=== PATIENT | male | born 1940 | race Caucasian/White ===

== ENCOUNTER 2019-01-01 23:45 | Emergency (ER) | payer MEDICARE, OTHER ==
[~2019-01-01] VITALS: Ht 165.1 cm; Wt 66.8 kg
--- NOTE | 2019-01-02 01:09 | NUR ---
DISCUSSED PT'S SLIGHT INCREASE OF PAIN WITH EDMD GARCIA; NEW ORDER FOR MORPHINE X2 RECEIVED.
[2019-01-02] MEDS ORDERED: morphine 4 MG/ML inj SYRINge IV ONE (01:10)
[2019-01-02] MEDS ORDERED: normal saline 1000ml 1,000 ML IV ONE (01:15)
[2019-01-02] MEDS ORDERED: ketorolac tromethamine 15mg/ml inj. IV ONE (01:15)
[2019-01-02] MEDS ORDERED: normal saline 1000ML IV soln IVB ONE (01:15)
--- NOTE | 2019-01-02 01:19 | NUR ---
TO XRAY W/ STOP BY BATHROOM FOR UA.
[2019-01-02 01:42] LABS: ALANINE AMINOTRANSFERASE 23 U/L (12-78); ALBUMIN 3.1 G/DL (3.4-5.0); ALBUMIN/GLOBULIN RATIO 0.9 (1.1-1.5); ALKALINE PHOSPHATASE 48 IU/L (46-116); ANION GAP 9 (8-16); ASPARTATE AMINO TRANSFERASE 15 U/L (10-37); BILIRUBIN,TOTAL 0.3 MG/DL (0.1-1.0); BLOOD UREA NITROGEN 30 MG/DL (7-18); BUN/CREATININE RATIO 21.9 (5.4-32.0); CALCIUM 8.6 MG/DL (8.5-10.1); CHLORIDE 108 MMOL/L (99-107); CREATININE 1.37 MG/DL (0.60-1.10); GLUCOSE 123 MG/DL (70-104); LIPASE 115 U/L (73-393); POTASSIUM 4.2 MMOL/L (3.5-5.1); SODIUM 141 MMOL/L (135-145); TOTAL CARBON DIOXIDE 23.7 MMOL/L (24-32); TOTAL PROTEIN 6.5 G/DL (6.4-8.2); eGFR 50 ML/MIN
[2019-01-02 01:43] LABS: BASOPHILS % (AUTO) 0.3 % (0-1); EOSINOPHILS # (AUTO) 0.2 X10'3 (0-0.9); EOSINOPHILS % (AUTO) 1.9 % (0-6); HEMATOCRIT 28.1 % (42.0-52.0); HEMOGLOBIN 9.7 g/dl (14.0-17.9); LYMPHOCYTES # (AUTO) 0.8 X10'3 (1.1-4.8); LYMPHOCYTES % (AUTO) 9.4 % (21-51); MEAN CORPUSCULAR HGB CONC 34.6 g/dL (33.0-36.5); MEAN CORPUSCULAR VOLUME 95.5 FL (78-98); MEAN PLATELET VOLUME 7.4 FL (7.4-10.4); MONOCYTES # (AUTO) 0.3 X10'3 (0-0.9); MONOCYTES % (AUTO) 2.9 % (2-12); NEUTROPHILS # (AUTO) 7.7 X10'3 (1.8-7.7); NEUTROPHILS % (AUTO) 85.5 % (42-75); PLATELET COUNT 255 X10'3 (140-440); RED BLOOD COUNT 2.94 X10'6 (4.70-6.10); RED CELL DISTRIBUTION WIDTH 14.3 % (11.5-14.5)
[2019-01-02 01:47] LABS: CLARITY,URINE CLEAR (Clear); COLOR,URINE YELLOW (Yellow); GLUCOSE, URINE NEGATIVE (Neg); KETONES,URINE TRACE mg/dl (Neg); LEUKOCYTE ESTERASE ,URINE NEGATIVE (Neg); NITRITES, URINE NEGATIVE (Neg); OCCULT BLOOD,URINE TRACE-INTACT (Neg); PH,URINE 5.5 (4.8-8.0); PROTEIN,URINE NEGATIVE (Neg); UROBILINOGEN,URINE 0.2 E.U/dL (0.2-1.0)
[2019-01-02 01:50] LABS: UA COLLECTION TYPE VOIDED
[2019-01-02 01:55] LABS: BACTERIA,URINE FEW /HPF (Neg); MUCUS STRANDS FEW /LPF (Neg); RBC,URINE 0-2 /HPF (0-2); SQUAMOUS EPITHELIAL CELL,UR FEW /LPF (FEW); WBC,URINE 0-4 /HPF (0-4)
[2019-01-02] MEDS ORDERED: iohexol 300mg/ml 100ml inj. ONE (02:19)
[2019-01-02] MEDS ORDERED: piperacillin/tazo 3.375gm/50ml 50 ML IV ONE (04:10)
[2019-01-02 04:51] VITALS: BP 110/52
[2019-01-02] MEDS ORDERED: ciprofloxacin 250mg tablet PO ONE (04:55)
[2019-01-02] MEDS ORDERED: metroNIDAZOLE 500mg tablet PO ONE (04:55)
[2019-01-02] MEDS ORDERED: METR250T PO (04:57)
[2019-01-02] MEDS ORDERED: CIPR250T4 PO (04:57)
== END 2019-01-02 05:34 | disposition home or self-care (01) ==
LOC: ER 23:45
DX: K57.32 Diverticulitis of large intestine without perforation or abscess without bleeding (principal); R11.10 Vomiting, unspecified; I10 Essential (primary) hypertension; Z87.442 Personal history of urinary calculi; Z79.2 Long term (current) use of antibiotics
CPT/HCPCS: 36415; 74018; 74177; 80053; 81001; 83605; 83690; 85025; 87040; 93005; 96361; 96365; 96375; 99284; J1885; J2543; J7030; Q9967; J3490

== ENCOUNTER 2020-10-09 19:38 | Emergency (ER) | payer MEDICARE, OTHER ==
[~2020-10-09] VITALS: Ht 165.1 cm; Wt 65.9 kg
[2020-10-09] MEDS ORDERED: HYDROcodone/acetaminophen 10/325mg tab PO ONE (23:00)
[2020-10-09 23:42] LABS: BASOPHILS % (AUTO) 0.4 % (0-1); EOSINOPHILS # (AUTO) 0.1 X10'3 (0-0.9); EOSINOPHILS % (AUTO) 1.1 % (0-6); HEMATOCRIT 27.2 % (42.0-52.0); HEMOGLOBIN 9.1 g/dl (14.0-17.9); LYMPHOCYTES # (AUTO) 2.2 X10'3 (1.1-4.8); LYMPHOCYTES % (AUTO) 19.8 % (21-51); MEAN CORPUSCULAR HEMOGLOBIN 30.3 PG (27.0-31.0); MEAN CORPUSCULAR HGB CONC 33.4 g/dL (33.0-36.5); MEAN CORPUSCULAR VOLUME 90.6 FL (78-98); MEAN PLATELET VOLUME 6.7 FL (7.4-10.4); MONOCYTES # (AUTO) 0.6 X10'3 (0-0.9); NEUTROPHILS # (AUTO) 8.2 X10'3 (1.8-7.7); NEUTROPHILS % (AUTO) 73.7 % (42-75); PLATELET COUNT 385 X10'3 (140-440); RED CELL DISTRIBUTION WIDTH 15.1 % (11.5-14.5); WHITE BLOOD COUNT 11.1 X10'3 (4.5-11.0)
[2020-10-09 23:50] LABS: ALANINE AMINOTRANSFERASE 15 U/L (12-78); ALBUMIN 2.7 G/DL (3.4-5.0); ALBUMIN/GLOBULIN RATIO 0.6 (1.1-1.5); ALKALINE PHOSPHATASE 71 IU/L (46-116); ANION GAP 13 (8-16); ASPARTATE AMINO TRANSFERASE 20 U/L (10-37); BILIRUBIN,TOTAL 0.4 MG/DL (0.1-1.0); BLOOD UREA NITROGEN 25 MG/DL (7-18); BUN/CREATININE RATIO 22.5 (5.4-32.0); CALCIUM 9.8 MG/DL (8.5-10.1); CHLORIDE 104 MMOL/L (99-107); CREATININE 1.11 MG/DL (0.60-1.10); GLUCOSE 117 MG/DL (70-104); POTASSIUM 3.9 MMOL/L (3.5-5.1); SODIUM 140 MMOL/L (135-145); TOTAL CARBON DIOXIDE 23.1 MMOL/L (24-32); TOTAL PROTEIN 7.6 G/DL (6.4-8.2); eGFR 64 ML/MIN
[2020-10-10] MEDS ORDERED: ketorolac tromethamine 15mg/ml inj. IM ONE
[2020-10-10 00:50] VITALS: BP 169/68
== END 2020-10-10 00:52 | disposition home or self-care (01) ==
LOC: ER 19:39
DX: M10.39 Gout due to renal impairment, multiple sites (principal); R10.9 Unspecified abdominal pain; I10 Essential (primary) hypertension; Z87.442 Personal history of urinary calculi
CPT/HCPCS: 36415; 80053; 84550; 85025; 85651; 96372; 99283; J1885

== ENCOUNTER 2021-08-04 19:20 | Inpatient (IN) | payer MEDICARE, OTHER ==
[~2021-08-04] VITALS: Ht 165.1 cm; Wt 70.0 kg
[~2021-08-04 19:20] MED LIST: ALLO300T2 PO; ASPI-1071 PO; ATOR20TA66 PO; CHOL500050 PO; CLOP75TA34 PO; FURO-150 PO; GABA-530 PO; METO-395 PO; MULT-1085 PO; OMEG-79 PO; PRED5TAB49 PO; SACU1TAB PO
--- NOTE | 2021-08-04 19:34 | NUR ---
xray at bedside
--- NOTE | 2021-08-04 19:40 | NUR ---
patient placed on a cardiac montior , bed in the lowest position
[2021-08-04 19:51] LABS: BASOPHILS % (AUTO) 0.1 % (0-1); EOSINOPHILS % (AUTO) 0 % (0-6); HEMOGLOBIN 10.2 g/dl (14.0-17.9); LYMPHOCYTES # (AUTO) 0.6 X10'3 (1.1-4.8); LYMPHOCYTES % (AUTO) 4.7 % (21-51); MEAN CORPUSCULAR HEMOGLOBIN 32.9 PG (27.0-31.0); MEAN CORPUSCULAR VOLUME 96.7 FL (78-98); MEAN PLATELET VOLUME 7.8 FL (7.4-10.4); MONOCYTES # (AUTO) 0.2 X10'3 (0-0.9); NEUTROPHILS # (AUTO) 11.4 X10'3 (1.8-7.7); NEUTROPHILS % (AUTO) 93.2 % (42-75); PLATELET COUNT 349 X10'3 (140-440); RED CELL DISTRIBUTION WIDTH 16.1 % (11.5-14.5); WHITE BLOOD COUNT 12.2 X10'3 (4.5-11.0)
[2021-08-04 20:07] LABS: ALANINE AMINOTRANSFERASE 32 U/L (12-78); ALBUMIN 3.4 G/DL (3.4-5.0); ALBUMIN/GLOBULIN RATIO 0.8 (1.1-1.5); ALKALINE PHOSPHATASE 50 IU/L (46-116); ANION GAP 14 (8-16); ASPARTATE AMINO TRANSFERASE 54 U/L (10-37); BILIRUBIN,TOTAL 0.6 MG/DL (0.1-1.0); BLOOD UREA NITROGEN 82 MG/DL (7-18); CALCIUM 9.9 MG/DL (8.5-10.1); CHLORIDE 100 MMOL/L (99-107); CREATININE 2.16 MG/DL (0.60-1.10); GLUCOSE 135 MG/DL (70-104); POTASSIUM 4.3 MMOL/L (3.5-5.1); SODIUM 138 MMOL/L (135-145); TOTAL CARBON DIOXIDE 24.1 MMOL/L (24-32); TOTAL PROTEIN 7.8 G/DL (6.4-8.2); eGFR 30 ML/MIN
--- NOTE | 2021-08-04 20:15 | NUR ---
PATIENT TO CT
--- NOTE | 2021-08-04 20:30 | NUR ---
patient back in the room placed on the sustainable agriculture specialist
[2021-08-04] MEDS ORDERED: magnesium 2GM in 50ml NS 50 ML IV PRN (21:35)
[2021-08-04] MEDS ORDERED: mag hydrox/Alum hydrox/simeth 30ml oral suspension PO PRN (21:35)
[2021-08-04] MEDS ORDERED: magnesium hydroxide 30ml (MOM) UD suspension PO PRN (21:35)
[2021-08-04] MEDS ORDERED: magnesium Cl slow-release 64mg tablet PO PRN (21:35)
[2021-08-04] MEDS ORDERED: magnesium 4gm in 100ml NS 100 ML IV PRN (21:35)
[2021-08-04] MEDS ORDERED: acetaminophen 325mg tablet PO PRN (21:35)
[2021-08-04] MEDS ORDERED: potassium CL 10mEq/100ml bag 100 ML IV PRN (21:35)
[2021-08-04] MEDS ORDERED: ondansetron/PF 4mg/2ml inj IV PRN (21:35)
[2021-08-04] MEDS ORDERED: potassium Cl 20 mEq SR tablet PO PRN ×2 (21:35)
[2021-08-04] MEDS ORDERED: FURO20TA4 PO (22:08)
[2021-08-04] MEDS ORDERED: SACU1TAB PO (22:08)
[2021-08-04] MEDS ORDERED: CLOP75TA33 PO (22:08)
[2021-08-04] MEDS ORDERED: METO-395 PO (22:08)
--- NOTE | 2021-08-04 22:10 | NUR ---
[facility] [phone] WILDER NOTIFIED, NO NEW ORDERS.
[2021-08-04] MEDS ORDERED: ASPI-611 PO (22:13)
[2021-08-04 22:28] LABS: MAGNESIUM 2.3 MG/DL (1.5-2.4)
[2021-08-05] VITALS: BP 143/72
--- NOTE | 2021-08-05 | NUR ---
Patient transfer from ER to PCU in a stable condition. vital signs stable oriented to room bed in lower position call light within reach no signs of seizure at this time will continue to monitor and report changes
[2021-08-05 06:00] VITALS: BP 147/80
--- NOTE | 2021-08-05 06:16 | NUR ---
Problems reprioritized. Patient report given, questions answered & plan of care reviewed with Loida RN .
[2021-08-05 07:12] LABS: BASOPHILS % (AUTO) 0.1 % (0-1); EOSINOPHILS % (AUTO) 0 % (0-6); HEMATOCRIT 30.5 % (42.0-52.0); HEMOGLOBIN 10.2 g/dl (14.0-17.9); LYMPHOCYTES # (AUTO) 1.1 X10'3 (1.1-4.8); LYMPHOCYTES % (AUTO) 9.1 % (21-51); MEAN CORPUSCULAR HEMOGLOBIN 32.8 PG (27.0-31.0); MEAN CORPUSCULAR HGB CONC 33.5 g/dL (33.0-36.5); MEAN CORPUSCULAR VOLUME 97.8 FL (78-98); MEAN PLATELET VOLUME 8.1 FL (7.4-10.4); MONOCYTES # (AUTO) 0.5 X10'3 (0-0.9); MONOCYTES % (AUTO) 4.2 % (2-12); NEUTROPHILS # (AUTO) 10.4 X10'3 (1.8-7.7); NEUTROPHILS % (AUTO) 86.6 % (42-75); PLATELET COUNT 350 X10'3 (140-440); RED BLOOD COUNT 3.12 X10'6 (4.70-6.10); RED CELL DISTRIBUTION WIDTH 16.4 % (11.5-14.5)
[2021-08-05 07:16] LABS: ALANINE AMINOTRANSFERASE 32 U/L (12-78); ALBUMIN 3.2 G/DL (3.4-5.0); ALBUMIN/GLOBULIN RATIO 0.7 (1.1-1.5); ALKALINE PHOSPHATASE 48 IU/L (46-116); ANION GAP 15 (8-16); ASPARTATE AMINO TRANSFERASE 44 U/L (10-37); BILIRUBIN,TOTAL 0.5 MG/DL (0.1-1.0); BLOOD UREA NITROGEN 75 MG/DL (7-18); BUN/CREATININE RATIO 37.7 (5.4-32.0); CALCIUM 9.8 MG/DL (8.5-10.1); CHLORIDE 103 MMOL/L (99-107); CREATININE 1.99 MG/DL (0.60-1.10); GLUCOSE 146 MG/DL (70-104); MAGNESIUM 2.4 MG/DL (1.5-2.4); POTASSIUM 4.3 MMOL/L (3.5-5.1); SODIUM 140 MMOL/L (135-145); TOTAL CARBON DIOXIDE 21.6 MMOL/L (24-32); TOTAL PROTEIN 7.9 G/DL (6.4-8.2); eGFR 32 ML/MIN
[2021-08-05] MEDS: gabapentin 100mg capsule PO SCH ×2 (07:50→20:58)
[2021-08-05] MEDS: sacubitril/valsartan 24mg-26mg tablet PO SCH ×2 (07:51→20:58)
[2021-08-05] MEDS: multivitamins, therapeutics tablet PO SCH ×2 (07:52→20:58)
[2021-08-05] MEDS: aspirin 81mg, enteric-coated 1 TAB TABLET.DR PO SCH (07:52)
[2021-08-05] MEDS: clopidogrel 75mg tablet PO SCH (07:53)
[2021-08-05] MEDS: allopurinol 300 MG tablet PO SCH (07:53)
[2021-08-05] MEDS: cholecalciferol (vitamin D3) 1,000 unit (25mcg) tablet PO SCH (07:54)
[2021-08-05] MEDS: docusate sod 100mg capsule PO SCH ×2 (07:54→20:00)
[2021-08-05] MEDS: predniSONE 5mg tablet PO SCH (07:55)
[2021-08-05] MEDS: OMEGA-3/DHA/EPA/FISH OIL 1 EACH CAPSULE.DR PO SCH ×2 (07:56→20:58)
[2021-08-05] MEDS: K and/or MAG REPLACEMENT MC SCH ×2 (07:58→20:00)
[2021-08-05] MEDS ORDERED: metoprolol succinate 25mg (24-HOUR) SR. Tablet PO SCH (08:00)
[2021-08-05] MEDS ORDERED: furosemide 20MG tablet PO SCH (08:00)
[2021-08-05 11:00] VITALS: BP 111/66
[2021-08-05 15:56] VITALS: BP 106/40
[2021-08-05 18:50] VITALS: BP 101/53
[2021-08-05 22:00] VITALS: BP 91/56
[2021-08-06 02:00] VITALS: BP 89/47
[2021-08-06 05:47] LABS: BASOPHILS % (AUTO) 0.1 % (0-1); EOSINOPHILS # (AUTO) 0.1 X10'3 (0-0.9); EOSINOPHILS % (AUTO) 0.6 % (0-6); HEMATOCRIT 30.1 % (42.0-52.0); LYMPHOCYTES # (AUTO) 1.5 X10'3 (1.1-4.8); LYMPHOCYTES % (AUTO) 15.5 % (21-51); MEAN CORPUSCULAR HEMOGLOBIN 32.5 PG (27.0-31.0); MEAN CORPUSCULAR HGB CONC 33.3 g/dL (33.0-36.5); MEAN CORPUSCULAR VOLUME 97.7 FL (78-98); MEAN PLATELET VOLUME 8.1 FL (7.4-10.4); MONOCYTES # (AUTO) 0.5 X10'3 (0-0.9); MONOCYTES % (AUTO) 5.1 % (2-12); NEUTROPHILS # (AUTO) 7.7 X10'3 (1.8-7.7); NEUTROPHILS % (AUTO) 78.7 % (42-75); PLATELET COUNT 301 X10'3 (140-440); RED BLOOD COUNT 3.08 X10'6 (4.70-6.10); RED CELL DISTRIBUTION WIDTH 16.4 % (11.5-14.5); WHITE BLOOD COUNT 9.8 X10'3 (4.5-11.0)
[2021-08-06 06:00] VITALS: BP 95/53
[2021-08-06 06:25] LABS: ALANINE AMINOTRANSFERASE 26 U/L (12-78); ALBUMIN 2.5 G/DL (3.4-5.0); ALBUMIN/GLOBULIN RATIO 0.7 (1.1-1.5); ALKALINE PHOSPHATASE 40 IU/L (46-116); ANION GAP 9 (8-16); ASPARTATE AMINO TRANSFERASE 34 U/L (10-37); BILIRUBIN,TOTAL 0.6 MG/DL (0.1-1.0); BLOOD UREA NITROGEN 80 MG/DL (7-18); BUN/CREATININE RATIO 47.1 (5.4-32.0); CALCIUM 8.5 MG/DL (8.5-10.1); CHLORIDE 103 MMOL/L (99-107); GLUCOSE 90 MG/DL (70-104); MAGNESIUM 2.5 MG/DL (1.5-2.4); POTASSIUM 3.9 MMOL/L (3.5-5.1); SODIUM 137 MMOL/L (135-145); TOTAL CARBON DIOXIDE 24.9 MMOL/L (24-32); TOTAL PROTEIN 5.9 G/DL (6.4-8.2); eGFR 39 ML/MIN
[2021-08-06] MEDS: sacubitril/valsartan 24mg-26mg tablet PO SCH ×2 (08:00→20:00)
[2021-08-06] MEDS: K and/or MAG REPLACEMENT MC SCH ×2 (08:00→19:45)
[2021-08-06 08:09] VITALS: BP 94/55
[2021-08-06] MEDS: aspirin 81mg, enteric-coated 1 TAB TABLET.DR PO SCH (08:15)
[2021-08-06] MEDS: cholecalciferol (vitamin D3) 1,000 unit (25mcg) tablet PO SCH (08:16)
[2021-08-06] MEDS: docusate sod 100mg capsule PO SCH ×2 (08:16→23:11)
[2021-08-06] MEDS: gabapentin 100mg capsule PO SCH ×2 (08:18→23:11)
[2021-08-06] MEDS: OMEGA-3/DHA/EPA/FISH OIL 1 EACH CAPSULE.DR PO SCH ×2 (08:19→23:11)
[2021-08-06] MEDS: allopurinol 300 MG tablet PO SCH (08:19)
[2021-08-06] MEDS: multivitamins, therapeutics tablet PO SCH ×2 (08:21→23:17)
[2021-08-06] MEDS: predniSONE 5mg tablet PO SCH (08:21)
[2021-08-06] MEDS: clopidogrel 75mg tablet PO SCH (08:21)
--- NOTE | 2021-08-06 08:30 | NUR ---
Medication administration supervised by Clinical Guidance And Control System Engineer.
--- NOTE | 2021-08-06 10:50 | NUR ---
BM was not observed by me, this was reported by the patient.
--- NOTE | 2021-08-06 10:52 | NUR ---
Charting by Nanda TAVERAS reviewed by Katerin Topete RN
[2021-08-06 11:00] VITALS: BP 103/62
--- NOTE | 2021-08-06 12:46 | NUR ---
Pt had a 6.58 sec pause on the heart monitor, Pt states he had a feeling of dizziness, Pt was lying in bed. Denies any CP Vitals BP:103/58, HRR: 78,Resp 14. notified via Text/page. Addendum: 08/06/21 at 1304 by Loida Webster RN pt showing 2nd degree heart block periodically HR 47-60
--- NOTE | 2021-08-06 14:36 | NUR ---
Pt having AV dissociation, Heart Rate 30's, Pt not symptomatic. HOB elevated 45degree, pt was was taking bed bath with spouse. Denies any CP or discomforts.Denies any dizziness Dr. Hallman on unit and notified.Defibrillator/Pacer at bedside.
[2021-08-06 15:00] VITALS: BP 99/51
--- NOTE | 2021-08-06 15:23 | NUR ---
Pt states he ambulates to bathroom and voids normally
--- NOTE | 2021-08-06 15:26 | NUR ---
Charting Shiela TAVERAS reviewed by Katerin Topete RN
--- NOTE | 2021-08-06 15:52 | NUR ---
Charting by hRoda TAVERAS reviewed by Katerin Topete RN
--- NOTE | 2021-08-06 17:30 | NUR ---
Pt HR in the 30's sustaining, Patient feeling short of breath, Requested orders for Atropine? Informed MD patient on the Zoll monitor at this time.Awaiting addtl orders from
[2021-08-06] MEDS ORDERED: atropine 0.1mg/ml 10ml syringe IV ONE (17:40)
[2021-08-07] VITALS (7 sets, daily range): BP systolic 93–109; BP diastolic 34–56
[2021-08-07 07:07] LABS: BASOPHILS % (AUTO) 0.1 % (0-1); EOSINOPHILS # (AUTO) 0.2 X10'3 (0-0.9); EOSINOPHILS % (AUTO) 1.5 % (0-6); HEMATOCRIT 31.5 % (42.0-52.0); HEMOGLOBIN 10.2 g/dl (14.0-17.9); LYMPHOCYTES # (AUTO) 2.3 X10'3 (1.1-4.8); LYMPHOCYTES % (AUTO) 18.9 % (21-51); MEAN CORPUSCULAR HEMOGLOBIN 31.8 PG (27.0-31.0); MEAN CORPUSCULAR HGB CONC 32.4 g/dL (33.0-36.5); MEAN CORPUSCULAR VOLUME 98.1 FL (78-98); MEAN PLATELET VOLUME 8.5 FL (7.4-10.4); MONOCYTES # (AUTO) 0.7 X10'3 (0-0.9); MONOCYTES % (AUTO) 5.6 % (2-12); NEUTROPHILS # (AUTO) 8.9 X10'3 (1.8-7.7); NEUTROPHILS % (AUTO) 73.9 % (42-75); PLATELET COUNT 317 X10'3 (140-440); RED BLOOD COUNT 3.21 X10'6 (4.70-6.10); RED CELL DISTRIBUTION WIDTH 16.3 % (11.5-14.5); WHITE BLOOD COUNT 12.1 X10'3 (4.5-11.0)
[2021-08-07 07:30] LABS: ALANINE AMINOTRANSFERASE 23 U/L (12-78); ALBUMIN 2.4 G/DL (3.4-5.0); ALBUMIN/GLOBULIN RATIO 0.7 (1.1-1.5); ALKALINE PHOSPHATASE 41 IU/L (46-116); ANION GAP 5 (8-16); ASPARTATE AMINO TRANSFERASE 26 U/L (10-37); BILIRUBIN,TOTAL 0.6 MG/DL (0.1-1.0); BLOOD UREA NITROGEN 87 MG/DL (7-18); BUN/CREATININE RATIO 40.7 (5.4-32.0); CALCIUM 8.4 MG/DL (8.5-10.1); CHLORIDE 101 MMOL/L (99-107); CREATININE 2.14 MG/DL (0.60-1.10); GLUCOSE 105 MG/DL (70-104); MAGNESIUM 2.6 MG/DL (1.5-2.4); POTASSIUM 4.4 MMOL/L (3.5-5.1); SODIUM 130 MMOL/L (135-145); TOTAL CARBON DIOXIDE 23.8 MMOL/L (24-32); TOTAL PROTEIN 5.9 G/DL (6.4-8.2); eGFR 30 ML/MIN
[2021-08-07] MEDS: sacubitril/valsartan 24mg-26mg tablet PO SCH (08:00)
[2021-08-07] MEDS: K and/or MAG REPLACEMENT MC SCH ×3 (08:00→20:00)
[2021-08-07] MEDS: aspirin 81mg, enteric-coated 1 TAB TABLET.DR PO SCH (09:24)
[2021-08-07] MEDS: multivitamins, therapeutics tablet PO SCH ×2 (09:24→20:05)
[2021-08-07] MEDS: gabapentin 100mg capsule PO SCH (09:25)
[2021-08-07] MEDS: predniSONE 5mg tablet PO SCH (09:25)
[2021-08-07] MEDS: clopidogrel 75mg tablet PO SCH (09:25)
[2021-08-07] MEDS: allopurinol 300 MG tablet PO SCH (09:25)
[2021-08-07] MEDS: OMEGA-3/DHA/EPA/FISH OIL 1 EACH CAPSULE.DR PO SCH ×2 (09:26→20:05)
[2021-08-07] MEDS: docusate sod 100mg capsule PO SCH ×2 (09:26→20:05)
[2021-08-07] MEDS: cholecalciferol (vitamin D3) 1,000 unit (25mcg) tablet PO SCH (09:26)
[2021-08-07] MEDS: atorvastatin 20mg tablet PO SCH (09:29)
[2021-08-07] MEDS: sodium chloride 0.45% 1,000 ML IV SCH ×2 (09:47→18:57)
--- NOTE | 2021-08-07 18:51 | NUR ---
Problems reprioritized. Patient report given, questions answered & plan of care reviewed with SANDIP/RN
[2021-08-07] MEDS: gabapentin 300mg capsule PO SCH (20:05)
[2021-08-08] VITALS (11 sets, daily range): BP systolic 100–145; BP diastolic 42–79
[2021-08-08] MEDS: sodium chloride 0.45% 1,000 ML IV SCH ×3 (03:45→23:45)
[2021-08-08] MEDS ORDERED: fentaNYL/PF 50MCG/1 ML 2ML syringe ONE (05:40)
[2021-08-08] MEDS ORDERED: midazolam 1 mg/ML 2ml injection ONE (05:40)
[2021-08-08] MEDS ORDERED: ceFAZolin 1000mg inj ONE (05:40)
[2021-08-08] MEDS ORDERED: ceFAZolin 2gm in dextrose, iso 50 ML IV ONE (05:40)
[2021-08-08] MEDS ORDERED: LIDOcaine 1% w/EPI 1:100,000 30ml vial (MDV) ONE (05:41)
--- NOTE | 2021-08-08 06:50 | NUR ---
Report received from night nurse patient off the floor for Consulting Intern/Catrachita/RORO
[2021-08-08] MEDS: normal saline 1000ml 1,000 ML IV SCH ×2 (07:40→17:45)
[2021-08-08] MEDS ORDERED: HYDROcodone/acetaminophen 5mg/325mg tablet PO PRN (07:40)
[2021-08-08] MEDS ORDERED: HYDROcodone/acetaminophen 10/325mg tab PO PRN (07:40)
[2021-08-08] MEDS: multivitamins, therapeutics tablet PO SCH ×2 (07:57→19:44)
[2021-08-08] MEDS: OMEGA-3/DHA/EPA/FISH OIL 1 EACH CAPSULE.DR PO SCH ×2 (07:57→19:44)
[2021-08-08] MEDS: clopidogrel 75mg tablet PO SCH (07:57)
[2021-08-08] MEDS: allopurinol 100mg tablet PO SCH (07:57)
[2021-08-08] MEDS: cholecalciferol (vitamin D3) 1,000 unit (25mcg) tablet PO SCH (07:57)
[2021-08-08] MEDS: aspirin 81mg, enteric-coated 1 TAB TABLET.DR PO SCH (07:57)
[2021-08-08] MEDS: atorvastatin 20mg tablet PO SCH (07:58)
[2021-08-08] MEDS: gabapentin 300mg capsule PO SCH ×2 (07:58→19:44)
[2021-08-08] MEDS: predniSONE 5mg tablet PO SCH (07:58)
[2021-08-08] MEDS: docusate sod 100mg capsule PO SCH ×2 (07:58→19:44)
[2021-08-08] MEDS: K and/or MAG REPLACEMENT MC SCH ×2 (08:00→19:44)
[2021-08-08 09:42] LABS: BASOPHILS % (AUTO) 0 % (0-1); EOSINOPHILS # (AUTO) 0.2 X10'3 (0-0.9); EOSINOPHILS % (AUTO) 1.5 % (0-6); HEMATOCRIT 29.3 % (42.0-52.0); HEMOGLOBIN 9.8 g/dl (14.0-17.9); LYMPHOCYTES # (AUTO) 1.4 X10'3 (1.1-4.8); LYMPHOCYTES % (AUTO) 13.1 % (21-51); MEAN CORPUSCULAR HEMOGLOBIN 32.5 PG (27.0-31.0); MEAN CORPUSCULAR HGB CONC 33.3 g/dL (33.0-36.5); MEAN CORPUSCULAR VOLUME 97.7 FL (78-98); MEAN PLATELET VOLUME 8.4 FL (7.4-10.4); MONOCYTES # (AUTO) 0.3 X10'3 (0-0.9); MONOCYTES % (AUTO) 2.6 % (2-12); NEUTROPHILS # (AUTO) 8.7 X10'3 (1.8-7.7); NEUTROPHILS % (AUTO) 82.8 % (42-75); PLATELET COUNT 297 X10'3 (140-440); WHITE BLOOD COUNT 10.6 X10'3 (4.5-11.0)
[2021-08-08] MEDS: cephalexin 500mg capsule PO SCH ×2 (09:55→19:44)
[2021-08-08 10:02] LABS: ALANINE AMINOTRANSFERASE 20 U/L (12-78); ALBUMIN 2.4 G/DL (3.4-5.0); ALBUMIN/GLOBULIN RATIO 0.7 (1.1-1.5); ALKALINE PHOSPHATASE 44 IU/L (46-116); ANION GAP 13 (8-16); ASPARTATE AMINO TRANSFERASE 19 U/L (10-37); BILIRUBIN,TOTAL 0.3 MG/DL (0.1-1.0); BLOOD UREA NITROGEN 88 MG/DL (7-18); BUN/CREATININE RATIO 44.2 (5.4-32.0); CALCIUM 8.5 MG/DL (8.5-10.1); CHLORIDE 97 MMOL/L (99-107); CREATININE 1.99 MG/DL (0.60-1.10); GLUCOSE 241 MG/DL (70-104); MAGNESIUM 2.4 MG/DL (1.5-2.4); POTASSIUM 3.8 MMOL/L (3.5-5.1); SODIUM 133 MMOL/L (135-145); TOTAL PROTEIN 5.8 G/DL (6.4-8.2); eGFR 32 ML/MIN
[2021-08-08 13:53] LABS: CLARITY,URINE CLEAR (Clear); COLOR,URINE YELLOW (Yellow); GLUCOSE, URINE NEGATIVE (Neg); KETONES,URINE NEGATIVE (Neg); LEUKOCYTE ESTERASE ,URINE NEGATIVE (Neg); NITRITES, URINE NEGATIVE (Neg); OCCULT BLOOD,URINE NEGATIVE (Neg); PH,URINE 5.5 (4.8-8.0); PROTEIN,URINE NEGATIVE (Neg); UROBILINOGEN,URINE 0.2 E.U/dL (0.2-1.0)
[2021-08-08 13:54] LABS: TOTAL PROTEIN,URINE RANDOM 11.1 MG/DL
[2021-08-08 14:18] LABS: UA COLLECTION TYPE NON-SPECIFIED
[2021-08-08 14:41] LABS: UA EOSINOPHILS NO EOS /HPF
[2021-08-09] VITALS (7 sets, daily range): BP systolic 119–157; BP diastolic 34–73
[2021-08-09] MEDS: normal saline 1000ml 1,000 ML IV SCH (03:40)
[2021-08-09 06:12] LABS: BASOPHILS % (AUTO) 0.1 % (0-1); EOSINOPHILS # (AUTO) 0.2 X10'3 (0-0.9); EOSINOPHILS % (AUTO) 1.8 % (0-6); HEMATOCRIT 28.1 % (42.0-52.0); HEMOGLOBIN 9.4 g/dl (14.0-17.9); LYMPHOCYTES # (AUTO) 1.6 X10'3 (1.1-4.8); LYMPHOCYTES % (AUTO) 15.9 % (21-51); MEAN CORPUSCULAR HEMOGLOBIN 32.4 PG (27.0-31.0); MEAN CORPUSCULAR HGB CONC 33.4 g/dL (33.0-36.5); MEAN PLATELET VOLUME 8.3 FL (7.4-10.4); MONOCYTES # (AUTO) 0.4 X10'3 (0-0.9); MONOCYTES % (AUTO) 4.4 % (2-12); NEUTROPHILS # (AUTO) 7.8 X10'3 (1.8-7.7); NEUTROPHILS % (AUTO) 77.8 % (42-75); PLATELET COUNT 249 X10'3 (140-440)
[2021-08-09 07:05] LABS: ALANINE AMINOTRANSFERASE 15 U/L (12-78); ALBUMIN 2.3 G/DL (3.4-5.0); ALBUMIN/GLOBULIN RATIO 0.7 (1.1-1.5); ALKALINE PHOSPHATASE 43 IU/L (46-116); ANION GAP 11 (8-16); ASPARTATE AMINO TRANSFERASE 19 U/L (10-37); BILIRUBIN,TOTAL 0.5 MG/DL (0.1-1.0); BLOOD UREA NITROGEN 52 MG/DL (7-18); BUN/CREATININE RATIO 44.4 (5.4-32.0); CALCIUM 8.4 MG/DL (8.5-10.1); CHLORIDE 105 MMOL/L (99-107); CREATININE 1.17 MG/DL (0.60-1.10); GLUCOSE 93 MG/DL (70-104); POTASSIUM 4.1 MMOL/L (3.5-5.1); SODIUM 139 MMOL/L (135-145); TOTAL CARBON DIOXIDE 22.9 MMOL/L (24-32); TOTAL PROTEIN 5.6 G/DL (6.4-8.2); eGFR 60 ML/MIN
[2021-08-09] MEDS ORDERED: metoprolol succinate 25mg (24-HOUR) SR. Tablet PO SCH (08:00)
[2021-08-09] MEDS: K and/or MAG REPLACEMENT MC SCH (08:00)
[2021-08-09] MEDS: cholecalciferol (vitamin D3) 1,000 unit (25mcg) tablet PO SCH (08:01)
[2021-08-09] MEDS: docusate sod 100mg capsule PO SCH (08:02)
[2021-08-09] MEDS: clopidogrel 75mg tablet PO SCH (08:02)
[2021-08-09] MEDS: atorvastatin 20mg tablet PO SCH (08:02)
[2021-08-09] MEDS: aspirin 81mg, enteric-coated 1 TAB TABLET.DR PO SCH (08:02)
[2021-08-09] MEDS: multivitamins, therapeutics tablet PO SCH (08:03)
[2021-08-09] MEDS: predniSONE 5mg tablet PO SCH (08:03)
[2021-08-09] MEDS: allopurinol 100mg tablet PO SCH (08:03)
[2021-08-09] MEDS: gabapentin 300mg capsule PO SCH (08:03)
[2021-08-09] MEDS: OMEGA-3/DHA/EPA/FISH OIL 1 EACH CAPSULE.DR PO SCH (08:03)
[2021-08-09] MEDS ORDERED: CEPH-585 PO (08:04)
[2021-08-09] MEDS ORDERED: ATOR20TA66 PO (08:04)
[2021-08-09] MEDS: cephalexin 500mg capsule PO SCH (08:04)
--- NOTE | 2021-08-09 11:33 | NUR ---
Initial: Pt admitted w/ new onset seizure and HOLLIE, later dx w/ cardiorenal syndrome s/p pacemaker 08/07 per EMR. Pt is currently A&O x1, on Heart Healthy diet w/ avg 68%, though w/ recent improvement 100% last 4 meals meeting 83% estimated energy needs and 100% protein needs. LBM 08/05, bowel care available PRN. No nutrition intervention implemented at this time pending further PO trends. Will continue to follow closely. Recommendations: 1. Continue Heart Healthy diet 2. Monitor need for ONS pending further PO trends 3. Bowel care per rx Addendum: 08/09/21 at [address] Amended: Links added. Addendum: 08/09/21 at [address] I have reviewed assessment by wildlife biology internship
--- NOTE | 2021-08-09 15:53 | NUR ---
assisting RN with pt care, prior to dc home pt needs Lifevest, waiting for insurance approval per therapeutic case manager, if approved pt could receive vest tonight or tomorrow at some unknown time. Pt is resting quietly on bed, family at bedside, pt does have ride home
[2021-08-09] MEDS ORDERED: sacubitril/valsartan 24mg-26mg tablet PO SCH (20:00)
--- NOTE | 2021-08-09 20:27 | NUR ---
Patient and in room with life vest customer development representative. Education provided to and patient. Life vest working appropriately.
--- NOTE | 2021-08-09 20:58 | NUR ---
Discharge instructions given and medications reviewed. Questions answered by nurse. Patient transported via wheelchair to car. here to take patient home. Instructions to take night medications when home.
[2021-08-10] MEDS ORDERED: allopurinol 300 MG tablet PO SCH (08:30)
== END 2021-08-09 23:00 | disposition home or self-care (01) | DRG 242 ==
LOC: ER 19:21 → ED HOLD 21:37 → PCU 3S 08-05 00:25
PROVIDERS: ADMIT Internal Medicine; ATTEND Internal Medicine
PROC: 4A10X4Z Monitoring of Central Nervous Electrical Activity, External Approach (ICD-10-PCS; 2021-08-05)
PROC: 0JH606Z Insertion of Pacemaker, Dual Chamber into Chest Subcutaneous Tissue and Fascia, Open Approach (ICD-10-PCS; principal; 2021-08-08)
PROC: 02HK3JZ Insertion of Pacemaker Lead into Right Ventricle, Percutaneous Approach (ICD-10-PCS; 2021-08-08)
PROC: 02H63JZ Insertion of Pacemaker Lead into Right Atrium, Percutaneous Approach (ICD-10-PCS; 2021-08-08)
DX: I44.2 Atrioventricular block, complete (principal); I21.4 Non-ST elevation (NSTEMI) myocardial infarction; N17.0 Acute kidney failure with tubular necrosis; I50.22 Chronic systolic (congestive) heart failure; N17.9 Acute kidney failure, unspecified; I13.0 Hypertensive heart and chronic kidney disease with heart failure and stage 1 through stage 4 chronic kidney disease, or unspecified chronic kidney disease; E87.1 Hypo-osmolality and hyponatremia; R56.9 Unspecified convulsions; I49.5 Sick sinus syndrome; I25.10 Atherosclerotic heart disease of native coronary artery without angina pectoris; I65.29 Occlusion and stenosis of unspecified carotid artery; M54.9 Dorsalgia, unspecified; M10.9 Gout, unspecified; D50.9 Iron deficiency anemia, unspecified; N18.9 Chronic kidney disease, unspecified; E78.5 Hyperlipidemia, unspecified; E86.0 Dehydration; G47.33 Obstructive sleep apnea (adult) (pediatric); G89.4 Chronic pain syndrome; I25.2 Old myocardial infarction; Z79.82 Long term (current) use of aspirin; Z87.442 Personal history of urinary calculi; Z87.891 Personal history of nicotine dependence; Z79.899 Other long term (current) drug therapy
CPT/HCPCS: 33208; 36415; 70450; 71045; 71275; 80048; 80053; 80061; 81003; 82570; 83735; 83880; 84132; 84156; 84300; 84484; 85025; 85379; 85610; 85730; 87081; 87207; 87635; 93005; 93306; 93971; 94640; 94760; 95816; 96365; 96376; 97116; 97161; 97530; 99152; 99153; 99285; A4565; A4620; A6258; C1785; C1898; G0378; J0690; J1644; J1940; J1956; J2250; J2920; J3010; J3490; J7030; J7512; J7614; Q9967

== ENCOUNTER 2021-10-16 10:26 | Inpatient (IN) | payer MEDICARE, OTHER ==
[~2021-10-16] VITALS: Ht 165.1 cm; Wt 64.5 kg
[~2021-10-16 10:26] MED LIST changes: -ASPI-1071 PO; +ASPI-611 PO; +CEPH-585 PO; +CLOP75TA33 PO; -CLOP75TA34 PO; -FURO-150 PO
[2021-10-16] MEDS ORDERED: normal saline 1000ML IV soln IVB ONE (11:35)
[2021-10-16] MEDS ORDERED: ondansetron/PF 4mg/2ml inj IV ONE (11:35)
[2021-10-16 11:54] LABS: BASOPHILS % (AUTO) 0.1 % (0-1); EOSINOPHILS % (AUTO) 0.1 % (0-6); HEMATOCRIT 30.3 % (42.0-52.0); HEMOGLOBIN 10.4 g/dl (14.0-17.9); LYMPHOCYTES % (AUTO) 10.1 % (21-51); MEAN CORPUSCULAR HEMOGLOBIN 34.1 PG (27.0-31.0); MEAN CORPUSCULAR HGB CONC 34.2 g/dL (33.0-36.5); MEAN CORPUSCULAR VOLUME 99.7 FL (78-98); MEAN PLATELET VOLUME 7.2 FL (7.4-10.4); MONOCYTES # (AUTO) 0.4 X10'3 (0-0.9); NEUTROPHILS # (AUTO) 8.8 X10'3 (1.8-7.7); NEUTROPHILS % (AUTO) 85.7 % (42-75); PLATELET COUNT 271 X10'3 (140-440); RED BLOOD COUNT 3.04 X10'6 (4.70-6.10); RED CELL DISTRIBUTION WIDTH 18.5 % (11.5-14.5); WHITE BLOOD COUNT 10.3 X10'3 (4.5-11.0)
[2021-10-16 12:09] LABS: ALANINE AMINOTRANSFERASE 24 U/L (12-78); ALBUMIN/GLOBULIN RATIO 0.8 (1.1-1.5); ALKALINE PHOSPHATASE 44 IU/L (46-116); ANION GAP 7 (8-16); ASPARTATE AMINO TRANSFERASE 16 U/L (10-37); BILIRUBIN,TOTAL 0.3 MG/DL (0.1-1.0); BLOOD UREA NITROGEN 50 MG/DL (7-18); BUN/CREATININE RATIO 41.7 (5.4-32.0); CALCIUM 9.5 MG/DL (8.5-10.1); CHLORIDE 104 MMOL/L (99-107); GLUCOSE 157 MG/DL (70-104); POTASSIUM 4.5 MMOL/L (3.5-5.1); SODIUM 137 MMOL/L (135-145); TOTAL CARBON DIOXIDE 26.5 MMOL/L (24-32); TOTAL PROTEIN 6.7 G/DL (6.4-8.2); eGFR 58 ML/MIN
[2021-10-16] MEDS: morphine 4 MG/ML inj SYRINge IV PRN ×2 (12:11→14:58)
[2021-10-16] MEDS ORDERED: SPIR25TA5 PO (12:47)
[2021-10-16] MEDS ORDERED: EZET10TA48 PO (12:47)
[2021-10-16] MEDS ORDERED: PRED20TA PO (12:47)
[2021-10-16] MEDS ORDERED: METO-384 PO (12:47)
[2021-10-16] MEDS ORDERED: MULT-1085 PO (12:47)
[2021-10-16] MEDS ORDERED: DULO20CA18 PO (12:47)
[2021-10-16] MEDS ORDERED: LOSA100T57 PO (12:47)
[2021-10-16] MEDS ORDERED: ALLO300T8 PO (12:47)
[2021-10-16] MEDS ORDERED: magnesium hydroxide 30ml (MOM) UD suspension PO PRN (13:50)
[2021-10-16] MEDS ORDERED: HYDROcodone/acetaminophen 5mg/325mg tablet PO PRN (13:50)
[2021-10-16] MEDS ORDERED: magnesium Cl slow-release 64mg tablet PO PRN (13:50)
[2021-10-16] MEDS ORDERED: acetaminophen 650mg rectal suppository RC PRN (13:50)
[2021-10-16] MEDS ORDERED: POTASSIUM BICARB 20meq eff tab 20 MEQ TABLET.EFF PO PRN ×2 (13:50)
[2021-10-16] MEDS ORDERED: ondansetron/PF 4mg/2ml inj IV PRN (13:50)
[2021-10-16] MEDS ORDERED: mag hydrox/Alum hydrox/simeth 30ml oral suspension PO PRN (13:50)
[2021-10-16] MEDS ORDERED: ondansetron 4mg rapidly disintigrating tab PO PRN (13:50)
[2021-10-16] MEDS ORDERED: morphine 2 MG/ML inj. syringe IV PRN (13:50)
[2021-10-16] MEDS ORDERED: metoclopramide 5 mg/ml inj IV PRN (13:50)
[2021-10-16] MEDS ORDERED: potassium CL 10mEq/100ml bag 100 ML IV PRN (13:50)
[2021-10-16] MEDS ORDERED: acetaminophen 325mg tablet PO PRN ×2 (13:50)
[2021-10-16] MEDS ORDERED: magnesium 2GM in 50ml NS 50 ML IV PRN (13:50)
[2021-10-16] MEDS ORDERED: magnesium 4gm in 100ml NS 100 ML IV PRN (13:50)
[2021-10-16] MEDS ORDERED: bisacodyl 10mg suppository rectal RC PRN (13:50)
[2021-10-16] MEDS ORDERED: PERFLUTREN PROTEIN-A MICROSPHR (Optison) 0.22 MG/ML 3ML VIAL IV ONE (14:50)
[2021-10-16] MEDS ORDERED: PRED5TAB PO (14:56)
[2021-10-16] MEDS: normal saline 1000ml 1,000 ML IV SCH (14:58)
[2021-10-16 15:48] LABS: MAGNESIUM 2.1 MG/DL (1.5-2.4)
[2021-10-16] MEDS: K and/or MAG REPLACEMENT MC SCH (20:00)
[2021-10-16] MEDS: docusate sod 100mg capsule PO SCH (20:31)
[2021-10-16] MEDS: metoprolol succinate 25mg (24-HOUR) SR. Tablet PO SCH (20:31)
[2021-10-16] MEDS: duloxetine 20mg capsule.DR PO SCH (20:32)
[2021-10-16] MEDS: losartan 50mg tablet PO SCH (20:32)
[2021-10-16] MEDS: gabapentin 100mg capsule PO SCH (20:32)
[2021-10-16] MEDS: morphine 2 MG/ML inj. syringe IV PRN (20:33)
[2021-10-16] MEDS ORDERED: temazepam 15mg capsule PO PRN (21:00)
[2021-10-17] VITALS (16 sets, daily range): BP systolic 98–151; BP diastolic 31–106
[2021-10-17] MEDS: morphine 2 MG/ML inj. syringe IV PRN ×3 (05:18→13:27)
[2021-10-17] MEDS: normal saline 1000ml 1,000 ML IV SCH ×2 (05:18→17:55)
--- NOTE | 2021-10-17 06:15 | NUR ---
received report from batsheva ye
[2021-10-17 07:35] LABS: MAGNESIUM 2.1 MG/DL (1.5-2.4); POTASSIUM 4.8 MMOL/L (3.5-5.1)
[2021-10-17] MEDS: spironolactone 25 MG tablet PO SCH (07:37)
[2021-10-17] MEDS: clopidogrel 75mg tablet PO SCH (07:38)
[2021-10-17] MEDS: K and/or MAG REPLACEMENT MC SCH ×2 (07:38→20:00)
[2021-10-17] MEDS: gabapentin 100mg capsule PO SCH ×2 (07:50→21:27)
[2021-10-17] MEDS: predniSONE 5mg tablet PO SCH (07:50)
[2021-10-17] MEDS: duloxetine 20mg capsule.DR PO SCH ×2 (07:50→21:26)
[2021-10-17] MEDS: ezetimibe 10mg tablet PO SCH (07:51)
[2021-10-17] MEDS: docusate sod 100mg capsule PO SCH ×2 (07:52→21:27)
[2021-10-17] MEDS ORDERED: allopurinol 300 MG tablet PO SCH (08:00)
[2021-10-17] MEDS ORDERED: aspirin 81mg, enteric-coated 1 TAB TABLET.DR PO SCH (08:00)
[2021-10-17] MEDS ORDERED: BUPIVAcaine/PF 2.5 mg/ml (0.25%) 30ml vial ONE (13:53)
--- NOTE | 2021-10-17 14:26 | NUR ---
GAVE REPORT TO BEBA READ, IN OR
[2021-10-17] MEDS ORDERED: sevoflurane 250ml liquid IH ONE (14:31)
[2021-10-17] MEDS ORDERED: dexamethasone sod phosphate 10mg/ml inj ONE (14:31)
[2021-10-17] MEDS ORDERED: proCHLORperazine 10 MG/2 ml inj IV PRN (14:40)
[2021-10-17] MEDS ORDERED: HYDROmorphone/PF 0.2 MG/ML SYRINGE IV PRN ×2 (14:40)
[2021-10-17] MEDS ORDERED: hydrALAZINE 20mg/ml inj. IV PRN (14:40)
[2021-10-17] MEDS ORDERED: labetalol 20mg/4ml (5mg/ml) syringe IV PRN (14:40)
[2021-10-17] MEDS ORDERED: acetaminophen 1,000mg/100ml IV 100 ML IV PRN (14:40)
[2021-10-17] MEDS ORDERED: ondansetron/PF 4mg/2ml inj IV PRN (14:40)
[2021-10-17] MEDS ORDERED: morphine 2 MG/ML inj. syringe IV PRN (14:40)
[2021-10-17] MEDS ORDERED: ringers solution, lacted 1,000 ML IV SCH (14:40)
[2021-10-17] MEDS ORDERED: meperidine/PF 25mg/ml syringe IV PRN (14:40)
[2021-10-17] MEDS ORDERED: morphine 4 MG/ML inj SYRINge IV PRN (14:40)
[2021-10-17] MEDS ORDERED: midazolam 1 mg/ML 2ml injection ONE (14:42)
[2021-10-17] MEDS ORDERED: fentaNYL /PF 50mcg/ml 5ml ampule ONE (14:49)
[2021-10-17] MEDS ORDERED: rocuronium 10mg/ml inj IV ONE (15:09)
[2021-10-17] MEDS ORDERED: ceFAZolin 1000mg inj ONE ×2 (15:09)
[2021-10-17] MEDS ORDERED: 0.9 % SODIUM CHLORIDE 10 ML VIAL ONE ×2 (15:09)
[2021-10-17] MEDS ORDERED: propofol inj 20 ML IV ONE (15:09)
[2021-10-17] MEDS ORDERED: LIDOcaine 2% (20mg/ml) 5ml vial ONE (15:09)
[2021-10-17] MEDS ORDERED: ePHEDrine 50MG/ML INJ. ONE ×2 (15:11→15:21)
[2021-10-17] MEDS ORDERED: ondansetron/PF 4mg/2ml inj ONE (15:21)
[2021-10-17] MEDS ORDERED: hydrocortisone sod succ/PF 100mg/2ml inj. ONE (15:21)
[2021-10-17] MEDS ORDERED: famotidine/PF 10 mg/ml inj IV ONE (15:22)
[2021-10-17] MEDS ORDERED: ROPIVAcaine 0.5% (5mg/ml) 30ml vial ONE (16:09)
[2021-10-17] MEDS ORDERED: neostigmine methylsulfate 1 MG/ML 10ml vial ONE (16:25)
--- NOTE | 2021-10-17 17:25 | NUR ---
received report from application support intern
--- NOTE | 2021-10-17 17:30 | NUR ---
PATIENT HAS MET ALL CRITERIA FOR TRANSFER TO THE ORTHO FLOOR. VSS. DRESSINGS INTACT. BED LOW, CALL LIGHT PRESENT AND 2 RAILS UP. RN PRESENT TO ACCEPT CARE OF PATIENT AND REPORT HAS BEEN CALLED. ALL QUESTIONS ANSWERED TO ACCEPTING RN Addendum: 10/17/21 at 1752 by Brice Rollins RN Amended: Links added.
--- NOTE | 2021-10-17 18:12 | NUR ---
gave report to batsheva osorio
--- NOTE | 2021-10-17 19:00 | NUR ---
Patient in room ORTHO 4022. I have received report from RORO Williamson and had the opportunity to ask questions and assume patient care. at bedside, Patient ALOx4, in no apparent distress. Post op vitals are within normal limits
[2021-10-17] MEDS: metoprolol succinate 25mg (24-HOUR) SR. Tablet PO SCH (21:00)
[2021-10-17] MEDS: losartan 50mg tablet PO SCH (21:00)
[2021-10-17] MEDS: HYDROcodone/acetaminophen 10/325mg tab PO PRN (21:28)
[2021-10-18] VITALS (15 sets, daily range): BP systolic 89–147; BP diastolic 30–61
[2021-10-18] MEDS: ceFAZolin/D5W- 1GM premix 50 ML IV SCH ×3 (01:42→17:35)
[2021-10-18] MEDS: normal saline 1000ml 1,000 ML IV SCH ×2 (03:20→17:35)
[2021-10-18] MEDS: HYDROcodone/acetaminophen 10/325mg tab PO PRN (04:35)
[2021-10-18 05:59] LABS: BASOPHILS % (AUTO) 0.1 % (0-1); EOSINOPHILS % (AUTO) 0.2 % (0-6); LYMPHOCYTES # (AUTO) 1.2 X10'3 (1.1-4.8); LYMPHOCYTES % (AUTO) 14.6 % (21-51); MEAN PLATELET VOLUME 7.4 FL (7.4-10.4); MONOCYTES # (AUTO) 0.3 X10'3 (0-0.9); NEUTROPHILS # (AUTO) 6.9 X10'3 (1.8-7.7); NEUTROPHILS % (AUTO) 81.1 % (42-75); PLATELET COUNT 179 X10'3 (140-440); RED BLOOD COUNT 1.99 X10'6 (4.70-6.10); RED CELL DISTRIBUTION WIDTH 18.4 % (11.5-14.5); WHITE BLOOD COUNT 8.5 X10'3 (4.5-11.0)
[2021-10-18 06:06] LABS: HEMATOCRIT 19.9 % (42.0-52.0); HEMOGLOBIN 6.8 g/dl (14.0-17.9)
[2021-10-18 06:14] LABS: ALANINE AMINOTRANSFERASE 21 U/L (12-78); ALBUMIN 2.1 G/DL (3.4-5.0); ALBUMIN/GLOBULIN RATIO 0.7 (1.1-1.5); ALKALINE PHOSPHATASE 33 IU/L (46-116); ANION GAP 4 (8-16); ASPARTATE AMINO TRANSFERASE 30 U/L (10-37); BILIRUBIN,TOTAL 0.3 MG/DL (0.1-1.0); BLOOD UREA NITROGEN 46 MG/DL (7-18); BUN/CREATININE RATIO 39.7 (5.4-32.0); CALCIUM 8.2 MG/DL (8.5-10.1); CHLORIDE 108 MMOL/L (99-107); CREATININE 1.16 MG/DL (0.60-1.10); GLUCOSE 110 MG/DL (70-104); MAGNESIUM 1.8 MG/DL (1.5-2.4); POTASSIUM 4.6 MMOL/L (3.5-5.1); SODIUM 137 MMOL/L (135-145); TOTAL CARBON DIOXIDE 25.5 MMOL/L (24-32); TOTAL PROTEIN 5.1 G/DL (6.4-8.2); eGFR 61 ML/MIN
[2021-10-18] MEDS: clopidogrel 75mg tablet PO SCH (06:33)
[2021-10-18] MEDS: aspirin 325mg tablet PO SCH (06:50)
[2021-10-18] MEDS: spironolactone 25 MG tablet PO SCH (06:51)
--- NOTE | 2021-10-18 06:58 | NUR ---
Problems reprioritized. Patient report given, questions answered & plan of care reviewed with RORO Dewitt.
[2021-10-18] MEDS ORDERED: allopurinol 300 MG tablet PO SCH ×2 (08:00→14:20)
[2021-10-18] MEDS: K and/or MAG REPLACEMENT MC SCH ×2 (08:00→20:00)
[2021-10-18] MEDS: duloxetine 20mg capsule.DR PO SCH ×2 (08:36→20:32)
[2021-10-18] MEDS: ezetimibe 10mg tablet PO SCH (08:36)
[2021-10-18] MEDS: docusate sod 100mg capsule PO SCH ×2 (08:36→20:33)
[2021-10-18] MEDS: predniSONE 5mg tablet PO SCH (08:36)
[2021-10-18] MEDS: gabapentin 100mg capsule PO SCH ×2 (08:36→20:32)
--- NOTE | 2021-10-18 10:15 | NUR ---
notified md rick decreased bp 100/35. states we will cont to monitor as pt is receiving blood and should go up. pt asymptomatic. will cont to monitor.
--- NOTE | 2021-10-18 16:14 | NUR ---
called dr potter to notify of low h&h and verify what ortho will be rounding on pt. no answer, left message to return call.
--- NOTE | 2021-10-18 16:37 | NUR ---
recd call back from dr potter. states he will round on pt tomorrow. made aware of critical h&h.
--- NOTE | 2021-10-18 19:02 | NUR ---
Problems reprioritized. Patient report given, questions answered & plan of care reviewed with devon herman.
[2021-10-18 19:45] LABS: HEMOGLOBIN 9.4 g/dl (14.0-17.9); MEAN CORPUSCULAR HEMOGLOBIN 33.6 PG (27.0-31.0); MEAN CORPUSCULAR HGB CONC 34.6 g/dL (33.0-36.5); MEAN PLATELET VOLUME 7.2 FL (7.4-10.4); PLATELET COUNT 144 X10'3 (140-440); RED BLOOD COUNT 2.79 X10'6 (4.70-6.10); RED CELL DISTRIBUTION WIDTH 16.8 % (11.5-14.5); WHITE BLOOD COUNT 8.4 X10'3 (4.5-11.0)
[2021-10-18] MEDS: losartan 50mg tablet PO SCH (20:34)
[2021-10-18] MEDS: metoprolol succinate 25mg (24-HOUR) SR. Tablet PO SCH (20:35)
[2021-10-19] MEDS: ceFAZolin/D5W- 1GM premix 50 ML IV SCH (00:45)
[2021-10-19] MEDS: HYDROcodone/acetaminophen 10/325mg tab PO PRN ×2 (01:47→05:48)
[2021-10-19] MEDS: normal saline 1000ml 1,000 ML IV SCH (05:49)
[2021-10-19 06:00] VITALS: BP 130/55
--- NOTE | 2021-10-19 06:23 | NUR ---
Problems reprioritized. Patient report given, questions answered & plan of care reviewed with RORO Sim.
[2021-10-19 07:44] LABS: BASOPHILS % (AUTO) 0.1 % (0-1); EOSINOPHILS # (AUTO) 0.1 X10'3 (0-0.9); EOSINOPHILS % (AUTO) 1.6 % (0-6); HEMATOCRIT 25.6 % (42.0-52.0); HEMOGLOBIN 8.9 g/dl (14.0-17.9); LYMPHOCYTES # (AUTO) 1.3 X10'3 (1.1-4.8); LYMPHOCYTES % (AUTO) 19.6 % (21-51); MEAN CORPUSCULAR HGB CONC 34.6 g/dL (33.0-36.5); MEAN CORPUSCULAR VOLUME 98.3 FL (78-98); MEAN PLATELET VOLUME 7.2 FL (7.4-10.4); MONOCYTES # (AUTO) 0.3 X10'3 (0-0.9); NEUTROPHILS # (AUTO) 4.9 X10'3 (1.8-7.7); NEUTROPHILS % (AUTO) 74.7 % (42-75); PLATELET COUNT 133 X10'3 (140-440); RED BLOOD COUNT 2.61 X10'6 (4.70-6.10); RED CELL DISTRIBUTION WIDTH 16.6 % (11.5-14.5); WHITE BLOOD COUNT 6.5 X10'3 (4.5-11.0)
[2021-10-19] MEDS: spironolactone 25 MG tablet PO SCH (08:00)
[2021-10-19] MEDS: K and/or MAG REPLACEMENT MC SCH (08:00)
[2021-10-19 08:09] LABS: ALANINE AMINOTRANSFERASE 11 U/L (12-78); ALBUMIN/GLOBULIN RATIO 0.7 (1.1-1.5); ALKALINE PHOSPHATASE 34 IU/L (46-116); ANION GAP 3 (8-16); ASPARTATE AMINO TRANSFERASE 26 U/L (10-37); BILIRUBIN,TOTAL 0.5 MG/DL (0.1-1.0); BLOOD UREA NITROGEN 33 MG/DL (7-18); CALCIUM 7.9 MG/DL (8.5-10.1); CHLORIDE 106 MMOL/L (99-107); GLUCOSE 85 MG/DL (70-104); MAGNESIUM 1.8 MG/DL (1.5-2.4); POTASSIUM 4.2 MMOL/L (3.5-5.1); SODIUM 135 MMOL/L (135-145); TOTAL CARBON DIOXIDE 25.7 MMOL/L (24-32); eGFR 72 ML/MIN
[2021-10-19] MEDS: docusate sod 100mg capsule PO SCH (08:41)
[2021-10-19] MEDS: ezetimibe 10mg tablet PO SCH (08:42)
[2021-10-19] MEDS: predniSONE 5mg tablet PO SCH (08:42)
[2021-10-19] MEDS: gabapentin 100mg capsule PO SCH (08:42)
[2021-10-19] MEDS: clopidogrel 75mg tablet PO SCH (08:42)
[2021-10-19] MEDS: duloxetine 20mg capsule.DR PO SCH (08:42)
[2021-10-19] MEDS: aspirin 325mg tablet PO SCH (08:42)
[2021-10-19 10:00] VITALS: BP 113/55
[2021-10-19 14:00] VITALS: BP 126/48
--- NOTE | 2021-10-19 16:05 | NUR ---
[facility] with all belongings and report called to [facility].
== END 2021-10-19 16:05 | DRG 522 ==
LOC: ER 10:26 → ED HOLD 13:52 → ORTHO 4S 23:26
PROVIDERS: ADMIT Family Medicine; ATTEND Family Medicine
PROC: 0SRR0JA Replacement of Right Hip Joint, Femoral Surface with Synthetic Substitute, Uncemented, Open Approach (ICD-10-PCS; principal; 2021-10-17 14:31)
PROC: 30233N1 Transfusion of Nonautologous Red Blood Cells into Peripheral Vein, Percutaneous Approach (ICD-10-PCS; 2021-10-18)
DX: S72.011A Unspecified intracapsular fracture of right femur, initial encounter for closed fracture (principal); I50.22 Chronic systolic (congestive) heart failure; I13.0 Hypertensive heart and chronic kidney disease with heart failure and stage 1 through stage 4 chronic kidney disease, or unspecified chronic kidney disease; N18.30 Chronic kidney disease, stage 3 unspecified; Z20.822 Contact with and (suspected) exposure to COVID-19; M1A.9XX0 Chronic gout, unspecified, without tophus (tophi); J44.9 Chronic obstructive pulmonary disease, unspecified; M54.9 Dorsalgia, unspecified; W01.0XXA Fall on same level from slipping, tripping and stumbling without subsequent striking against object, initial encounter; I25.10 Atherosclerotic heart disease of native coronary artery without angina pectoris; G47.33 Obstructive sleep apnea (adult) (pediatric); I49.5 Sick sinus syndrome; M54.30 Sciatica, unspecified side; E78.5 Hyperlipidemia, unspecified; G89.29 Other chronic pain; I25.2 Old myocardial infarction; Z87.442 Personal history of urinary calculi; Z95.0 Presence of cardiac pacemaker; Z88.8 Allergy status to other drugs, medicaments and biological substances; Y93.89 Activity, other specified; Y92.89 Other specified places as the place of occurrence of the external cause; Y99.8 Other external cause status; Z87.891 Personal history of nicotine dependence; Z79.899 Other long term (current) drug therapy; Z79.82 Long term (current) use of aspirin; Z79.02 Long term (current) use of antithrombotics/antiplatelets
CPT/HCPCS: 36415; 36430; 71045; 72100; 73502; 80053; 82948; 83735; 84132; 85025; 85027; 85610; 86885; 86900; 86901; 86920; 87081; 87635; 93005; 93308; 97110; 97162; 97530; 99285; A4618; A6454; A7000; A9272; C1776; G0378; J0690; J1100; J1720; J2250; J2270; J2405; J2704; J2710; J2795; J3010; J3490; J7030; J7120; J7512; P9016

== ENCOUNTER 2021-12-06 11:39 | Inpatient (IN) | payer MEDICARE, OTHER ==
[~2021-12-06] VITALS: Ht 160 cm; Wt 62.4 kg
[~2021-12-06 11:39] MED LIST changes: -ALLO300T2 PO; +ALLO300T8 PO; -ATOR20TA66 PO; -CEPH-585 PO; +DULO20CA18 PO; +EZET10TA48 PO; +LOSA100T57 PO; +METO-384 PO; -METO-395 PO; +PRED5TAB PO; -PRED5TAB49 PO; -SACU1TAB PO; +SPIR25TA5 PO
[2021-12-06 12:55] LABS: BASOPHILS % (AUTO) 0.2 % (0-1); EOSINOPHILS # (AUTO) 0.4 X10'3 (0-0.9); EOSINOPHILS % (AUTO) 4.6 % (0-6); HEMATOCRIT 25.9 % (42.0-52.0); HEMOGLOBIN 8.6 g/dl (14.0-17.9); LYMPHOCYTES # (AUTO) 0.9 X10'3 (1.1-4.8); LYMPHOCYTES % (AUTO) 11.3 % (21-51); MEAN CORPUSCULAR HEMOGLOBIN 33.7 PG (27.0-31.0); MEAN CORPUSCULAR HGB CONC 33.3 g/dL (33.0-36.5); MEAN CORPUSCULAR VOLUME 101.2 FL (78-98); MEAN PLATELET VOLUME 6.9 FL (7.4-10.4); MONOCYTES # (AUTO) 0.3 X10'3 (0-0.9); MONOCYTES % (AUTO) 3.6 % (2-12); NEUTROPHILS # (AUTO) 6.6 X10'3 (1.8-7.7); NEUTROPHILS % (AUTO) 80.3 % (42-75); PLATELET COUNT 381 X10'3 (140-440); RED BLOOD COUNT 2.56 X10'6 (4.70-6.10); RED CELL DISTRIBUTION WIDTH 16.5 % (11.5-14.5); WHITE BLOOD COUNT 8.2 X10'3 (4.5-11.0)
[2021-12-06 13:19] LABS: ALANINE AMINOTRANSFERASE 13 U/L (12-78); ALBUMIN 2.4 G/DL (3.4-5.0); ALBUMIN/GLOBULIN RATIO 0.6 (1.1-1.5); ALKALINE PHOSPHATASE 59 IU/L (46-116); ANION GAP 4 (8-16); ASPARTATE AMINO TRANSFERASE 19 U/L (10-37); BILIRUBIN,TOTAL 0.3 MG/DL (0.1-1.0); BLOOD UREA NITROGEN 37 MG/DL (7-18); BUN/CREATININE RATIO 29.6 (5.4-32.0); CHLORIDE 105 MMOL/L (99-107); CREATININE 1.25 MG/DL (0.60-1.10); GLUCOSE 114 MG/DL (70-104); POTASSIUM 3.9 MMOL/L (3.5-5.1); SODIUM 138 MMOL/L (135-145); TOTAL CARBON DIOXIDE 29.5 MMOL/L (24-32); TOTAL PROTEIN 6.4 G/DL (6.4-8.2); eGFR 56 ML/MIN
[2021-12-06 13:22] LABS: CALCIUM 12.9 MG/DL (8.5-10.1)
--- NOTE | 2021-12-06 13:30 | NUR ---
Attempted to ween pt off O2 per provider request. Pt desatted to mid 80's. Placed back on 2L.
[2021-12-06 13:59] LABS: UA COLLECTION TYPE URINAL
[2021-12-06 14:00] LABS: CLARITY,URINE CLEAR (Clear); COLOR,URINE YELLOW (Yellow); GLUCOSE, URINE NEGATIVE (Neg); KETONES,URINE NEGATIVE (Neg); LEUKOCYTE ESTERASE ,URINE NEGATIVE (Neg); NITRITES, URINE NEGATIVE (Neg); OCCULT BLOOD,URINE NEGATIVE (Neg); PH,URINE 5.5 (4.8-8.0); PROTEIN,URINE NEGATIVE (Neg); UROBILINOGEN,URINE 0.2 E.U/dL (0.2-1.0)
[2021-12-06] MEDS ORDERED: HYDR-3964 PO (14:20)
[2021-12-06] MEDS ORDERED: EMPA10TA PO (14:20)
[2021-12-06] MEDS ORDERED: FURO20TA4 PO (14:20)
[2021-12-06] MEDS ORDERED: GABA300C PO (14:20)
[2021-12-06] MEDS ORDERED: acetaminophen 325mg tablet PO PRN (18:15)
[2021-12-06] MEDS ORDERED: PERFLUTREN PROTEIN-A MICROSPHR (Optison) 0.22 MG/ML 3ML VIAL IV ONE (18:15)
[2021-12-06] MEDS ORDERED: magnesium 4gm in 100ml NS 100 ML IV PRN (18:15)
[2021-12-06] MEDS ORDERED: morphine 2 MG/ML inj. syringe IV PRN (18:15)
[2021-12-06] MEDS ORDERED: magnesium 2GM in 50ml NS 50 ML IV PRN (18:15)
[2021-12-06] MEDS ORDERED: potassium CL 10mEq/100ml bag 100 ML IV PRN (18:15)
[2021-12-06] MEDS ORDERED: POTASSIUM BICARB 20meq eff tab 20 MEQ TABLET.EFF PO PRN ×2 (18:15)
[2021-12-06] MEDS ORDERED: ondansetron/PF 4mg/2ml inj IV PRN (18:15)
[2021-12-06] MEDS: K and/or MAG REPLACEMENT MC SCH (18:47)
[2021-12-06 19:08] LABS: MAGNESIUM 1.7 MG/DL (1.5-2.4); POTASSIUM 4.1 MMOL/L (3.5-5.1)
[2021-12-07] MEDS ORDERED: PERFLUTREN PROTEIN-A MICROSPHR (Optison) 0.22 MG/ML 3ML VIAL IV PRN (07:20)
[2021-12-07] MEDS: K and/or MAG REPLACEMENT MC SCH ×2 (07:36→20:44)
[2021-12-07 08:27] LABS: BASOPHILS % (AUTO) 0.3 % (0-1); EOSINOPHILS # (AUTO) 0.4 X10'3 (0-0.9); EOSINOPHILS % (AUTO) 3.7 % (0-6); HEMATOCRIT 29.9 % (42.0-52.0); LYMPHOCYTES # (AUTO) 2.8 X10'3 (1.1-4.8); LYMPHOCYTES % (AUTO) 24.5 % (21-51); MEAN CORPUSCULAR HEMOGLOBIN 33.8 PG (27.0-31.0); MEAN CORPUSCULAR HGB CONC 33.6 g/dL (33.0-36.5); MEAN CORPUSCULAR VOLUME 100.4 FL (78-98); MONOCYTES # (AUTO) 0.5 X10'3 (0-0.9); MONOCYTES % (AUTO) 4.3 % (2-12); NEUTROPHILS # (AUTO) 7.7 X10'3 (1.8-7.7); NEUTROPHILS % (AUTO) 67.2 % (42-75); PLATELET COUNT 532 X10'3 (140-440); RED BLOOD COUNT 2.98 X10'6 (4.70-6.10); RED CELL DISTRIBUTION WIDTH 16.3 % (11.5-14.5); WHITE BLOOD COUNT 11.5 X10'3 (4.5-11.0)
[2021-12-07 08:42] LABS: ALBUMIN 2.7 G/DL (3.4-5.0); ANION GAP 10 (8-16); BLOOD UREA NITROGEN 30 MG/DL (7-18); BUN/CREATININE RATIO 21.1 (5.4-32.0); CHLORIDE 102 MMOL/L (99-107); CREATININE 1.42 MG/DL (0.60-1.10); GLUCOSE 114 MG/DL (70-104); MAGNESIUM 1.3 MG/DL (1.5-2.4); POTASSIUM 3.6 MMOL/L (3.5-5.1); SODIUM 136 MMOL/L (135-145); eGFR 48 ML/MIN
[2021-12-07 08:45] LABS: CALCIUM 13.4 MG/DL (8.5-10.1)
[2021-12-07] MEDS: spironolactone 25 MG tablet PO SCH (09:29)
[2021-12-07] MEDS: allopurinol 300 MG tablet PO SCH (09:29)
[2021-12-07] MEDS: ezetimibe 10mg tablet PO SCH (09:29)
--- NOTE | 2021-12-07 09:49 | NUR ---
Assisted to bedside commode. Pt had BM and was assisted back into bed.
[2021-12-07] MEDS ORDERED: ipratropium/albuterol 3ml nebule NEB SCH (11:00)
--- NOTE | 2021-12-07 11:55 | NUR ---
Dr. Hallman at bedside, requests bladder scan and aguilar if indicated.
--- NOTE | 2021-12-07 12:00 | NUR ---
Bladder scan >1670. Hospitalist aware. Ga to be placed.
[2021-12-07] MEDS ORDERED: traMADol 50MG tablet PO ONE (12:25)
[2021-12-07] MEDS ORDERED: normal saline 1000ml 1,000 ML IV SCH (12:35)
--- NOTE | 2021-12-07 13:29 | NUR ---
Found pt sitting at foot of the bed; assisted back into bed and palced oxygen back on patient. Pt dyspneic during ambulation.
--- NOTE | 2021-12-07 16:40 | NUR ---
Paged hospitalist for clarification with maintenance fluid order. Pt with CHF hx, and NS ordered at 75 ml/hr, as well as not having diuretic order.
--- NOTE | 2021-12-07 19:53 | NUR ---
Patient in room ED 5. I have received report from Rafal Barton Rn and had the opportunity to ask questions and will assume patient care upon arrival to the floor. Addendum: 12/07/21 at 1956 by Dorina Stephen RN Amended: Links added.
[2021-12-07] MEDS ORDERED: methylPREDNISolone sod succ 125mg/2ml vial IV SCH (20:00)
[2021-12-07] MEDS: OMEGA-3/DHA/EPA/FISH OIL 1 EACH CAPSULE.DR PO SCH (20:32)
[2021-12-07] MEDS: losartan 50mg tablet PO SCH (20:33)
[2021-12-07] MEDS: gabapentin 300mg capsule PO SCH (20:33)
[2021-12-07] MEDS: duloxetine 20mg capsule.DR PO SCH (20:34)
[2021-12-07] MEDS: metoprolol tartrate 25mg tablet PO SCH (20:34)
[2021-12-07 20:35] VITALS: BP 143/75
[2021-12-07] MEDS: ipratropium/albuterol 3ml nebule NEB SCH (20:37)
[2021-12-07] MEDS: magnesium Cl slow-release 64mg tablet PO PRN (20:42)
[2021-12-07] MEDS: multivitamins, therapeutics tablet PO SCH (20:44)
--- NOTE | 2021-12-07 21:00 | NUR ---
Architect Naval called Dr Hallman but she did not return call. Dr Siddiqui called to clarify Iv orders he is aware pt drinking fluids , of heart rate, bp and calcium level of 13.4 with chf & sob and PBNP of 10,000. orders to saline lock iv taken. also aware pt with aguilar for retention issues and has only has spirolactone for PBNP
--- NOTE | 2021-12-07 22:14 | NUR ---
tabs unit on pt found attempting to get out of bed. attempt to reorient pt to place time and events noted confused and forgetful.
--- NOTE | 2021-12-07 23:03 | NUR ---
pt confused pulling on tele wires said to code machine operator isn't this magical. attempt reorient pt and tabs on pt and again had to remind him it is night time he has a aguilar and doesn't need to get up at this time and that the hospital door to the room needs to remain open so the nurses can make sure he is ok.
--- NOTE | 2021-12-08 00:37 | NUR ---
PT CONFUSED AND ATTEMPT GET OOB BED AND O2 off and pt unhooked aguilar tubing from the strap a second time. attempt to reorient the pt.
[2021-12-08 02:00] VITALS: BP 130/57
--- NOTE | 2021-12-08 02:50 | NUR ---
ptawoke ripped leg strap off his thigh. pt put on bedside commode for smear of stool. had also taken o2 off and reapplied it. attempt to reorient pt without success. assisted back into bed new aguilar thigh attachment applied and tabs back on.
[2021-12-08] MEDS: ipratropium/albuterol 3ml nebule NEB SCH ×4 (03:34→20:17)
--- NOTE | 2021-12-08 04:27 | NUR ---
pt remains confused pulling on tabs unit continue to attempt to reorient pt. repositioned in bed.
--- NOTE | 2021-12-08 05:30 | NUR ---
PT CONFUSED TOOK HIS 02 OFF HAD TAKEN HIS SOCK OFF THEN O2 ATTACHED TO WALL METER BUT HAD CANULA THAT GOES TO NARES WRAPPED AROUND 2ND &3RD TOES THEN HAD PUT HIS SOCK BACK ON SCOOTED DOWN IN BED SET OFF HIS TABS UNIT.
[2021-12-08 06:00] VITALS: BP 84/53
[2021-12-08 06:47] LABS: BASOPHILS % (AUTO) 0.3 % (0-1); EOSINOPHILS # (AUTO) 0.3 X10'3 (0-0.9); HEMATOCRIT 24.9 % (42.0-52.0); HEMOGLOBIN 8.5 g/dl (14.0-17.9); LYMPHOCYTES # (AUTO) 1.2 X10'3 (1.1-4.8); LYMPHOCYTES % (AUTO) 16.5 % (21-51); MEAN CORPUSCULAR HEMOGLOBIN 34.5 PG (27.0-31.0); MEAN CORPUSCULAR HGB CONC 34.3 g/dL (33.0-36.5); MEAN CORPUSCULAR VOLUME 100.6 FL (78-98); MONOCYTES # (AUTO) 0.3 X10'3 (0-0.9); MONOCYTES % (AUTO) 4.3 % (2-12); NEUTROPHILS # (AUTO) 5.5 X10'3 (1.8-7.7); NEUTROPHILS % (AUTO) 74.9 % (42-75); PLATELET COUNT 354 X10'3 (140-440); RED BLOOD COUNT 2.47 X10'6 (4.70-6.10); RED CELL DISTRIBUTION WIDTH 16.4 % (11.5-14.5); WHITE BLOOD COUNT 7.3 X10'3 (4.5-11.0)
--- NOTE | 2021-12-08 06:52 | NUR ---
Problems reprioritized. Patient report given, questions answered & plan of care reviewed with RORO GRIFFITH. Addendum: 12/08/21 at 0652 by Dorina Stephen RN Amended: Links added.
[2021-12-08 07:00] LABS: ALBUMIN 2.2 G/DL (3.4-5.0); ANION GAP 9 (8-16); BLOOD UREA NITROGEN 25 MG/DL (7-18); BUN/CREATININE RATIO 21.6 (5.4-32.0); CHLORIDE 105 MMOL/L (99-107); CREATININE 1.16 MG/DL (0.60-1.10); GLUCOSE 96 MG/DL (70-104); MAGNESIUM 1.3 MG/DL (1.5-2.4); POTASSIUM 3.2 MMOL/L (3.5-5.1); SODIUM 142 MMOL/L (135-145); TOTAL CARBON DIOXIDE 27.8 MMOL/L (24-32); eGFR 61 ML/MIN
[2021-12-08 07:05] LABS: CALCIUM 12.4 MG/DL (8.5-10.1)
[2021-12-08] MEDS: K and/or MAG REPLACEMENT MC SCH ×2 (08:00→20:00)
[2021-12-08] MEDS: aspirin 81mg, enteric-coated 1 TAB TABLET.DR PO SCH (10:07)
[2021-12-08] MEDS: ezetimibe 10mg tablet PO SCH (10:07)
[2021-12-08] MEDS: OMEGA-3/DHA/EPA/FISH OIL 1 EACH CAPSULE.DR PO SCH ×2 (10:07→20:59)
[2021-12-08] MEDS: allopurinol 300 MG tablet PO SCH (10:07)
[2021-12-08] MEDS: duloxetine 20mg capsule.DR PO SCH ×2 (10:07→20:59)
[2021-12-08] MEDS: gabapentin 300mg capsule PO SCH ×2 (10:07→20:59)
[2021-12-08] MEDS: spironolactone 25 MG tablet PO SCH (10:08)
[2021-12-08] MEDS: cholecalciferol (vitamin D3) 1,000 unit (25mcg) tablet PO SCH (10:09)
[2021-12-08] MEDS: magnesium Cl slow-release 64mg tablet PO PRN (10:16)
--- NOTE | 2021-12-08 10:51 | NUR ---
O2 Sat at rest on room air:_86__% If below 89%: Recovery O2 Sat at rest on _3__LPM:_93__%:___% via____nasal cannula (mask/nasal cannula, etc..) No further documentation is necessary. If O2 Sat did not drop below 89% on room air,ambulate patient on room air. O2 Sat while ambulating on room air:___% Recovery O2 Sat while ambulating on ___LPM:___% No further documentation is necessary. If patient does not drop below 89% while ambulating, he/she does not qualify for home O2.
[2021-12-08 11:00] VITALS: BP 121/50
[2021-12-08] MEDS: normal saline 1000ml 1,000 ML IV SCH (12:17)
[2021-12-08] MEDS: furosemide 20 MG/2 ML vial IV SCH (12:17)
[2021-12-08 15:00] VITALS: BP 123/56
[2021-12-08 18:00] VITALS: BP 119/58
--- NOTE | 2021-12-08 18:15 | NUR ---
Patient in room PCU 3018. I have received report from jesica herman and had the opportunity to ask questions and assume patient care.
[2021-12-08] MEDS: multivitamins, therapeutics tablet PO SCH (21:00)
[2021-12-08] MEDS: losartan 50mg tablet PO SCH (21:04)
[2021-12-08] MEDS: metoprolol tartrate 25mg tablet PO SCH (21:05)
[2021-12-08 22:00] VITALS: BP 125/60
[2021-12-09 02:00] VITALS: BP 127/58
[2021-12-09] MEDS: ipratropium/albuterol 3ml nebule NEB SCH ×4 (03:40→19:40)
--- NOTE | 2021-12-09 05:27 | NUR ---
AGREE WITH TOOL GRINDING MACHINE OPERATOR PHYSICAL ASSESSMENT CHARTED
[2021-12-09 07:00] VITALS: BP 128/53
[2021-12-09 07:02] LABS: BASOPHILS % (AUTO) 0.3 % (0-1); EOSINOPHILS # (AUTO) 0.5 X10'3 (0-0.9); EOSINOPHILS % (AUTO) 6.1 % (0-6); HEMATOCRIT 24.9 % (42.0-52.0); HEMOGLOBIN 8.4 g/dl (14.0-17.9); LYMPHOCYTES # (AUTO) 1.4 X10'3 (1.1-4.8); LYMPHOCYTES % (AUTO) 16.2 % (21-51); MEAN CORPUSCULAR HEMOGLOBIN 33.5 PG (27.0-31.0); MEAN CORPUSCULAR HGB CONC 33.6 g/dL (33.0-36.5); MEAN CORPUSCULAR VOLUME 99.7 FL (78-98); MONOCYTES # (AUTO) 0.4 X10'3 (0-0.9); MONOCYTES % (AUTO) 4.7 % (2-12); NEUTROPHILS # (AUTO) 6.2 X10'3 (1.8-7.7); NEUTROPHILS % (AUTO) 72.7 % (42-75); PLATELET COUNT 369 X10'3 (140-440); RED CELL DISTRIBUTION WIDTH 16.4 % (11.5-14.5); WHITE BLOOD COUNT 8.6 X10'3 (4.5-11.0)
[2021-12-09 07:30] LABS: ANION GAP 4 (8-16); BLOOD UREA NITROGEN 19 MG/DL (7-18); BUN/CREATININE RATIO 15.6 (5.4-32.0); CHLORIDE 103 MMOL/L (99-107); CREATININE 1.22 MG/DL (0.60-1.10); GLUCOSE 96 MG/DL (70-104); POTASSIUM 3.5 MMOL/L (3.5-5.1); SODIUM 138 MMOL/L (135-145); TOTAL CARBON DIOXIDE 30.9 MMOL/L (24-32); eGFR 57 ML/MIN
[2021-12-09 07:53] LABS: CALCIUM 12.2 MG/DL (8.5-10.1)
[2021-12-09] MEDS: K and/or MAG REPLACEMENT MC SCH ×2 (08:00→19:42)
[2021-12-09] MEDS: predniSONE 5mg tablet PO SCH (08:32)
[2021-12-09] MEDS: allopurinol 300 MG tablet PO SCH (08:32)
[2021-12-09] MEDS: duloxetine 20mg capsule.DR PO SCH ×2 (08:32→19:50)
[2021-12-09] MEDS: OMEGA-3/DHA/EPA/FISH OIL 1 EACH CAPSULE.DR PO SCH ×2 (08:32→19:50)
[2021-12-09] MEDS: gabapentin 300mg capsule PO SCH ×2 (08:32→19:50)
[2021-12-09] MEDS: ezetimibe 10mg tablet PO SCH (08:32)
[2021-12-09] MEDS: cholecalciferol (vitamin D3) 1,000 unit (25mcg) tablet PO SCH (08:32)
[2021-12-09] MEDS: aspirin 81mg, enteric-coated 1 TAB TABLET.DR PO SCH (08:32)
[2021-12-09] MEDS: normal saline 1000ml 1,000 ML IV SCH (08:33)
[2021-12-09] MEDS: furosemide 20 MG/2 ML vial IV SCH (08:36)
[2021-12-09] MEDS: magnesium Cl slow-release 64mg tablet PO PRN (08:40)
[2021-12-09 11:00] VITALS: BP 106/48
[2021-12-09 15:00] VITALS: BP 100/53
[2021-12-09 18:00] VITALS: BP 90/34
--- NOTE | 2021-12-09 18:15 | NUR ---
Problems reprioritized. Patient report given, questions answered & plan of care reviewed with Jami READ.
[2021-12-09] MEDS: losartan 50mg tablet PO SCH (21:00)
[2021-12-09] MEDS: metoprolol tartrate 25mg tablet PO SCH (21:00)
--- NOTE | 2021-12-09 21:17 | NUR ---
PAGER ID: [phone] MESSAGE: Pt RM [id number] Dejan Soto needs electrolyte protocol orders is it ok to add
[2021-12-09] MEDS: multivitamins, therapeutics tablet PO SCH (21:33)
[2021-12-09] MEDS: diatr meglu/diatrizoate 30ml oral sol.-(3 dose) bottle PO SCH (21:34)
[2021-12-09 22:00] VITALS: BP 102/150
--- NOTE | 2021-12-09 23:11 | NUR ---
PAGER ID: [phone] MESSAGE: 2nd page Pt RM [id number] Dejan Soto needs electrolyte protocol orders is it ok to add
[2021-12-10] VITALS (7 sets, daily range): BP systolic 97–142; BP diastolic 34–52
[2021-12-10] MEDS: ipratropium/albuterol 3ml nebule NEB SCH ×4 (02:39→20:19)
[2021-12-10] MEDS: normal saline 1000ml 1,000 ML IV SCH ×2 (02:42→23:15)
[2021-12-10 06:39] LABS: BASOPHILS % (AUTO) 0.3 % (0-1); EOSINOPHILS # (AUTO) 0.7 X10'3 (0-0.9); EOSINOPHILS % (AUTO) 6.9 % (0-6); HEMATOCRIT 26.5 % (42.0-52.0); LYMPHOCYTES # (AUTO) 1.3 X10'3 (1.1-4.8); LYMPHOCYTES % (AUTO) 12.9 % (21-51); MEAN CORPUSCULAR HEMOGLOBIN 34.1 PG (27.0-31.0); MEAN CORPUSCULAR HGB CONC 33.8 g/dL (33.0-36.5); MEAN PLATELET VOLUME 6.8 FL (7.4-10.4); MONOCYTES # (AUTO) 0.4 X10'3 (0-0.9); NEUTROPHILS # (AUTO) 7.8 X10'3 (1.8-7.7); NEUTROPHILS % (AUTO) 75.9 % (42-75); PLATELET COUNT 355 X10'3 (140-440); RED BLOOD COUNT 2.63 X10'6 (4.70-6.10); RED CELL DISTRIBUTION WIDTH 16.2 % (11.5-14.5); WHITE BLOOD COUNT 10.3 X10'3 (4.5-11.0)
--- NOTE | 2021-12-10 06:48 | NUR ---
Problems reprioritized. Patient report given, questions answered & plan of care reviewed with RORO Knapp, aware of pt NPO status and CT with IV and oral prep and that electrolyte protocol needs to be re-ordered.
[2021-12-10 06:59] LABS: ALBUMIN 2.1 G/DL (3.4-5.0); ANION GAP 7 (8-16); BLOOD UREA NITROGEN 23 MG/DL (7-18); BUN/CREATININE RATIO 16.1 (5.4-32.0); CHLORIDE 103 MMOL/L (99-107); CREATININE 1.43 MG/DL (0.60-1.10); GLUCOSE 98 MG/DL (70-104); MAGNESIUM 1.1 MG/DL (1.5-2.4); POTASSIUM 3.6 MMOL/L (3.5-5.1); SODIUM 139 MMOL/L (135-145); TOTAL CARBON DIOXIDE 29.1 MMOL/L (24-32); eGFR 48 ML/MIN
[2021-12-10 07:08] LABS: CALCIUM 12.9 MG/DL (8.5-10.1)
[2021-12-10] MEDS ORDERED: potassium CL 10mEq/100ml bag 100 ML IV PRN (07:20)
[2021-12-10] MEDS ORDERED: magnesium 4gm in 100ml NS 100 ML IV PRN (07:20)
[2021-12-10] MEDS ORDERED: POTASSIUM BICARB 20meq eff tab 20 MEQ TABLET.EFF PO PRN ×2 (07:20)
[2021-12-10] MEDS: K and/or MAG REPLACEMENT MC SCH ×2 (08:00→20:00)
[2021-12-10] MEDS: furosemide 20 MG/2 ML vial IV SCH (08:00)
[2021-12-10] MEDS: allopurinol 300 MG tablet PO SCH (08:00)
[2021-12-10] MEDS: cholecalciferol (vitamin D3) 1,000 unit (25mcg) tablet PO SCH (08:00)
[2021-12-10] MEDS: OMEGA-3/DHA/EPA/FISH OIL 1 EACH CAPSULE.DR PO SCH ×2 (08:00→21:06)
[2021-12-10] MEDS: duloxetine 20mg capsule.DR PO SCH ×2 (08:40→21:07)
[2021-12-10] MEDS: predniSONE 5mg tablet PO SCH (08:40)
[2021-12-10] MEDS: magnesium Cl slow-release 64mg tablet PO PRN ×2 (08:40→17:37)
[2021-12-10] MEDS: ezetimibe 10mg tablet PO SCH (08:40)
[2021-12-10] MEDS: aspirin 81mg, enteric-coated 1 TAB TABLET.DR PO SCH (08:40)
[2021-12-10] MEDS: gabapentin 300mg capsule PO SCH ×2 (08:40→21:06)
[2021-12-10] MEDS: diatr meglu/diatrizoate 30ml oral sol.-(3 dose) bottle PO SCH ×2 (08:42→12:20)
--- NOTE | 2021-12-10 09:12 | NUR ---
PAGER ID: [phone] MESSAGE: Dejan Soto [id number] Pt. completely confused. Did you want head CT too while hes down there? Aria [id number]
[2021-12-10 11:05] LABS: PSA, FREE 0.18 ng/mL
[2021-12-10] MEDS ORDERED: iohexol 300mg/ml 100ml inj. ONE (11:53)
--- NOTE | 2021-12-10 12:20 | NUR ---
Pt. off to CT scan
[2021-12-10] MEDS ORDERED: pamidronate disodium inj 60 MG in normal saline 500ml IV soln 500 ML IV ONE (14:50)
--- NOTE | 2021-12-10 18:36 | NUR ---
Gave report to Jami READ.
[2021-12-10] MEDS: losartan 50mg tablet PO SCH (21:00)
[2021-12-10] MEDS: multivitamins, therapeutics tablet PO SCH (21:53)
[2021-12-10] MEDS: metoprolol tartrate 25mg tablet PO SCH (21:53)
[2021-12-11] VITALS (7 sets, daily range): BP systolic 91–126; BP diastolic 32–67
[2021-12-11] MEDS: ipratropium/albuterol 3ml nebule NEB SCH ×4 (02:43→20:02)
[2021-12-11] MEDS: normal saline 1000ml 1,000 ML IV SCH ×2 (04:11→22:33)
[2021-12-11 06:24] LABS: BASOPHILS % (AUTO) 0.3 % (0-1); EOSINOPHILS # (AUTO) 0.5 X10'3 (0-0.9); EOSINOPHILS % (AUTO) 4.9 % (0-6); HEMATOCRIT 25.1 % (42.0-52.0); HEMOGLOBIN 8.5 g/dl (14.0-17.9); LYMPHOCYTES % (AUTO) 10.4 % (21-51); MEAN CORPUSCULAR HEMOGLOBIN 34.2 PG (27.0-31.0); MEAN CORPUSCULAR HGB CONC 33.9 g/dL (33.0-36.5); MEAN CORPUSCULAR VOLUME 100.8 FL (78-98); MEAN PLATELET VOLUME 6.9 FL (7.4-10.4); MONOCYTES # (AUTO) 0.4 X10'3 (0-0.9); MONOCYTES % (AUTO) 3.6 % (2-12); NEUTROPHILS % (AUTO) 80.8 % (42-75); PLATELET COUNT 394 X10'3 (140-440); RED BLOOD COUNT 2.49 X10'6 (4.70-6.10); RED CELL DISTRIBUTION WIDTH 16.2 % (11.5-14.5); WHITE BLOOD COUNT 9.9 X10'3 (4.5-11.0)
[2021-12-11 06:33] LABS: ALBUMIN 2.1 G/DL (3.4-5.0); ANION GAP 6 (8-16); BLOOD UREA NITROGEN 24 MG/DL (7-18); BUN/CREATININE RATIO 15.9 (5.4-32.0); CHLORIDE 102 MMOL/L (99-107); CREATININE 1.51 MG/DL (0.60-1.10); GLUCOSE 85 MG/DL (70-104); MAGNESIUM 1.1 MG/DL (1.5-2.4); POTASSIUM 4.1 MMOL/L (3.5-5.1); SODIUM 137 MMOL/L (135-145); TOTAL CARBON DIOXIDE 29.5 MMOL/L (24-32); eGFR 45 ML/MIN
[2021-12-11 06:34] LABS: CALCIUM 12.2 MG/DL (8.5-10.1)
--- NOTE | 2021-12-11 06:43 | NUR ---
Problems reprioritized. Patient report given, questions answered & plan of care reviewed with RORO Sauceda.
--- NOTE | 2021-12-11 06:47 | NUR ---
Patient in room PCU 3018. I have received report from Jami READ and had the opportunity to ask questions and assume patient care.
[2021-12-11] MEDS: K and/or MAG REPLACEMENT MC SCH ×2 (07:32→18:55)
--- NOTE | 2021-12-11 09:06 | NUR ---
Initial: Pt admitted w/ acute on chronic systolic CHF, anemia, and hypercalcemia per EMR. Currently on Heart Healthy diet w/ avg intake 45% x 8 meals partially meeting needs. Recommend liberalizing to Regular diet and assist w/ meals as pt documented at A&O x 2 and confused. Pt could also benefit from Ensure Enlive BID to assist w/ meeting needs. LB 12/11. Will continue to monitor. Recs; 1. Liberalize to Regular diet 2. Ensure Enlive BIDBD; pending MD verification 3. Bowel care per rx 4. Weekly wts Addendum: 12/11/21 at [address] Amended: Links added.
[2021-12-11] MEDS: OMEGA-3/DHA/EPA/FISH OIL 1 EACH CAPSULE.DR PO SCH ×2 (10:08→20:19)
[2021-12-11] MEDS: ezetimibe 10mg tablet PO SCH (10:09)
[2021-12-11] MEDS: furosemide 20 MG/2 ML vial IV SCH (10:09)
[2021-12-11] MEDS: allopurinol 300 MG tablet PO SCH (10:09)
[2021-12-11] MEDS: gabapentin 300mg capsule PO SCH ×2 (10:09→20:19)
[2021-12-11] MEDS: predniSONE 5mg tablet PO SCH (10:09)
[2021-12-11] MEDS: aspirin 81mg, enteric-coated 1 TAB TABLET.DR PO SCH (10:09)
[2021-12-11] MEDS: duloxetine 20mg capsule.DR PO SCH ×2 (10:09→20:19)
[2021-12-11] MEDS: magnesium Cl slow-release 64mg tablet PO PRN (10:09)
[2021-12-11] MEDS: lactose-reduced food (Ensure Enlive) - 237ml bottle PO SCH (17:30)
[2021-12-11] MEDS: losartan 50mg tablet PO SCH (21:00)
[2021-12-11] MEDS: metoprolol tartrate 25mg tablet PO SCH (21:26)
[2021-12-11] MEDS: multivitamins, therapeutics tablet PO SCH (21:26)
--- NOTE | 2021-12-11 23:31 | NUR ---
Pt O2 saturation dropped to 89% on 4L bumped him up to 5L and he is now at 95% O2 sat.
[2021-12-12] MEDS: ipratropium/albuterol 3ml nebule NEB SCH ×4 (02:45→21:00)
--- NOTE | 2021-12-12 02:45 | NUR ---
Pt has been very agitated tonight. Patient said he was leaving and tried to pull off tele box. Patient said he was going home. That it is only a [address] from here. Patient eventually stopped pulling lines but was harder to re-direct than he was earlier in the night.
--- NOTE | 2021-12-12 06:29 | NUR ---
Problems reprioritized. Patient report given, questions answered & plan of care reviewed with RORO Sauceda.
[2021-12-12 07:00] VITALS: BP_SYST 122; BP_SYST 142; BP_DIAS 61; BP_DIAS 80
--- NOTE | 2021-12-12 07:22 | NUR ---
No lab orders this AM. paged - PAGER ID: [phone] MESSAGE: [id number] Dejan Soto: I don't see any labs ordered this morning. I know patient will DC today, but wasn't sure if you wanted labs drawn? Thanks! Komal True [id number]
[2021-12-12] MEDS: lactose-reduced food (Ensure Enlive) - 237ml bottle PO SCH ×2 (07:30→17:30)
[2021-12-12] MEDS: K and/or MAG REPLACEMENT MC SCH ×2 (08:00→20:00)
[2021-12-12 09:34] LABS: BASOPHILS % (AUTO) 0.3 % (0-1); EOSINOPHILS # (AUTO) 0.4 X10'3 (0-0.9); HEMATOCRIT 24.8 % (42.0-52.0); HEMOGLOBIN 8.4 g/dl (14.0-17.9); LYMPHOCYTES # (AUTO) 1.2 X10'3 (1.1-4.8); LYMPHOCYTES % (AUTO) 13.4 % (21-51); MEAN CORPUSCULAR HEMOGLOBIN 33.8 PG (27.0-31.0); MEAN CORPUSCULAR VOLUME 99.4 FL (78-98); MEAN PLATELET VOLUME 7.3 FL (7.4-10.4); MONOCYTES # (AUTO) 0.4 X10'3 (0-0.9); MONOCYTES % (AUTO) 4.1 % (2-12); NEUTROPHILS # (AUTO) 6.9 X10'3 (1.8-7.7); NEUTROPHILS % (AUTO) 77.2 % (42-75); PLATELET COUNT 415 X10'3 (140-440); RED BLOOD COUNT 2.49 X10'6 (4.70-6.10); RED CELL DISTRIBUTION WIDTH 16.1 % (11.5-14.5)
[2021-12-12] MEDS: ezetimibe 10mg tablet PO SCH (09:50)
[2021-12-12] MEDS: furosemide 20 MG/2 ML vial IV SCH (09:50)
[2021-12-12] MEDS: aspirin 81mg, enteric-coated 1 TAB TABLET.DR PO SCH (09:51)
[2021-12-12] MEDS: gabapentin 300mg capsule PO SCH ×2 (09:51→20:30)
[2021-12-12] MEDS: HYDROcodone/acetaminophen 5mg/325mg tablet PO PRN ×2 (09:51→20:41)
[2021-12-12] MEDS: allopurinol 100mg tablet PO SCH (09:51)
[2021-12-12] MEDS: OMEGA-3/DHA/EPA/FISH OIL 1 EACH CAPSULE.DR PO SCH ×2 (09:51→20:30)
[2021-12-12] MEDS: predniSONE 5mg tablet PO SCH (09:51)
[2021-12-12] MEDS: duloxetine 20mg capsule.DR PO SCH ×2 (09:51→20:30)
[2021-12-12 09:52] LABS: ALANINE AMINOTRANSFERASE 19 U/L (12-78); ALBUMIN 2.1 G/DL (3.4-5.0); ALBUMIN/GLOBULIN RATIO 0.5 (1.1-1.5); ALKALINE PHOSPHATASE 63 IU/L (46-116); ANION GAP 8 (8-16); ASPARTATE AMINO TRANSFERASE 25 U/L (10-37); BILIRUBIN,TOTAL 0.5 MG/DL (0.1-1.0); BLOOD UREA NITROGEN 27 MG/DL (7-18); BUN/CREATININE RATIO 17.6 (5.4-32.0); CHLORIDE 102 MMOL/L (99-107); CREATININE 1.53 MG/DL (0.60-1.10); GLUCOSE 97 MG/DL (70-104); POTASSIUM 3.6 MMOL/L (3.5-5.1); SODIUM 138 MMOL/L (135-145); TOTAL CARBON DIOXIDE 28.2 MMOL/L (24-32); TOTAL PROTEIN 6.2 G/DL (6.4-8.2); eGFR 44 ML/MIN
--- NOTE | 2021-12-12 10:12 | NUR ---
PAGER ID: [phone] MESSAGE: [id number] Dejan Soto: Calcium 12.0 today, continues to trend down. 12.2 yesterday
[2021-12-12 11:00] VITALS: BP 124/65
[2021-12-12 15:00] VITALS: BP 129/63
[2021-12-12 18:00] VITALS: BP 126/49
--- NOTE | 2021-12-12 18:35 | NUR ---
Patient in room PCU 3018. I have received report from Komal READ and had the opportunity to ask questions and assume patient care.
[2021-12-12] MEDS: losartan 50mg tablet PO SCH (20:30)
[2021-12-12] MEDS: metoprolol tartrate 25mg tablet PO SCH (20:30)
[2021-12-12] MEDS: multivitamins, therapeutics tablet PO SCH (20:31)
[2021-12-12 22:00] VITALS: BP 100/41
[2021-12-13] VITALS (7 sets, daily range): BP systolic 97–119; BP diastolic 42–54
[2021-12-13] MEDS: ipratropium/albuterol 3ml nebule NEB SCH ×3 (03:00→20:14)
--- NOTE | 2021-12-13 04:45 | NUR ---
tele monitor was disconnect, pt pulling off leads. pt reoriented and tele placed back on. pt c/o pain 11/02 and asking for pain medications. frq monitoring
--- NOTE | 2021-12-13 06:00 | NUR ---
Patient in room PCU 3018. I have received report from Sonal READ and had the opportunity to ask questions and assume patient care.
--- NOTE | 2021-12-13 06:43 | NUR ---
Problems reprioritized. Patient report given, questions answered & plan of care reviewed with Shiela READ.
[2021-12-13] MEDS: K and/or MAG REPLACEMENT MC SCH ×2 (08:00→20:04)
[2021-12-13] MEDS: ezetimibe 10mg tablet PO SCH (08:23)
[2021-12-13] MEDS: allopurinol 100mg tablet PO SCH (08:23)
[2021-12-13] MEDS: predniSONE 5mg tablet PO SCH (08:23)
[2021-12-13] MEDS: aspirin 81mg, enteric-coated 1 TAB TABLET.DR PO SCH (08:23)
[2021-12-13] MEDS: duloxetine 20mg capsule.DR PO SCH ×2 (08:24→20:00)
[2021-12-13] MEDS: gabapentin 300mg capsule PO SCH ×2 (08:24→20:00)
[2021-12-13] MEDS: OMEGA-3/DHA/EPA/FISH OIL 1 EACH CAPSULE.DR PO SCH ×2 (08:24→20:00)
[2021-12-13] MEDS: furosemide 20 MG/2 ML vial IV SCH (08:24)
[2021-12-13] MEDS: lactose-reduced food (Ensure Enlive) - 237ml bottle PO SCH ×2 (08:24→17:30)
[2021-12-13 09:13] LABS: BASOPHILS # (AUTO) 0.1 X10'3 (0-0.2); BASOPHILS % (AUTO) 0.7 % (0-1); EOSINOPHILS # (AUTO) 0.7 X10'3 (0-0.9); EOSINOPHILS % (AUTO) 7.6 % (0-6); HEMOGLOBIN 8.7 g/dl (14.0-17.9); LYMPHOCYTES # (AUTO) 1.3 X10'3 (1.1-4.8); LYMPHOCYTES % (AUTO) 14.7 % (21-51); MEAN CORPUSCULAR HEMOGLOBIN 33.7 PG (27.0-31.0); MEAN CORPUSCULAR HGB CONC 33.6 g/dL (33.0-36.5); MEAN CORPUSCULAR VOLUME 100.2 FL (78-98); MONOCYTES # (AUTO) 0.3 X10'3 (0-0.9); MONOCYTES % (AUTO) 2.9 % (2-12); NEUTROPHILS # (AUTO) 6.5 X10'3 (1.8-7.7); NEUTROPHILS % (AUTO) 74.1 % (42-75); PLATELET COUNT 414 X10'3 (140-440); RED BLOOD COUNT 2.59 X10'6 (4.70-6.10); RED CELL DISTRIBUTION WIDTH 16.3 % (11.5-14.5); WHITE BLOOD COUNT 8.7 X10'3 (4.5-11.0)
[2021-12-13 10:15] LABS: ALANINE AMINOTRANSFERASE 19 U/L (12-78); ALBUMIN 2.1 G/DL (3.4-5.0); ALBUMIN/GLOBULIN RATIO 0.5 (1.1-1.5); ALKALINE PHOSPHATASE 64 IU/L (46-116); ANION GAP 7 (8-16); ASPARTATE AMINO TRANSFERASE 21 U/L (10-37); BILIRUBIN,TOTAL 0.4 MG/DL (0.1-1.0); BLOOD UREA NITROGEN 30 MG/DL (7-18); BUN/CREATININE RATIO 20.8 (5.4-32.0); CALCIUM 11.7 MG/DL (8.5-10.1); CHLORIDE 102 MMOL/L (99-107); CREATININE 1.44 MG/DL (0.60-1.10); GLUCOSE 76 MG/DL (70-104); POTASSIUM 3.4 MMOL/L (3.5-5.1); SODIUM 139 MMOL/L (135-145); TOTAL PROTEIN 6.5 G/DL (6.4-8.2); eGFR 47 ML/MIN
[2021-12-13] MEDS: normal saline 1000ml 1,000 ML IV SCH (11:32)
[2021-12-13] MEDS ORDERED: magnesium Cl slow-release 64mg tablet PO PRN (13:20)
[2021-12-13] MEDS ORDERED: POTASSIUM BICARB 20meq eff tab 20 MEQ TABLET.EFF PO PRN ×2 (13:20)
[2021-12-13] MEDS ORDERED: potassium CL 10mEq/100ml bag 100 ML IV PRN ×2 (13:20→13:50)
[2021-12-13] MEDS ORDERED: magnesium 4gm in 100ml NS 100 ML IV PRN ×2 (13:20→13:50)
[2021-12-13] MEDS ORDERED: magnesium 2GM in 50ml NS 50 ML IV PRN (13:20)
--- NOTE | 2021-12-13 13:30 | NUR ---
Dr Pepper here on the floor and he is aware of patients orthostatic vitals. No new orders received.
--- NOTE | 2021-12-13 13:43 | NUR ---
[facility] pharmacy picked up patients oxygen concentrator.
[2021-12-13 13:48] LABS: MAGNESIUM 1.3 MG/DL (1.5-2.4)
[2021-12-13] MEDS ORDERED: potassium Cl 20 mEq SR tablet PO PRN (13:50)
[2021-12-13] MEDS: potassium Cl 20 mEq SR tablet PO PRN ×2 (14:05→19:59)
--- NOTE | 2021-12-13 18:19 | NUR ---
Problems reprioritized. Patient report given, questions answered & plan of care reviewed with Andree READ.
--- NOTE | 2021-12-13 18:32 | NUR ---
Patient in room PCU 3018B. I have received report from Shiela READ and had the opportunity to ask questions and assume patient care.
[2021-12-13] MEDS ORDERED: K and/or MAG REPLACEMENT MC SCH (20:00)
[2021-12-13] MEDS: magnesium Cl slow-release 64mg tablet PO PRN (20:00)
[2021-12-13] MEDS: multivitamins, therapeutics tablet PO SCH (21:14)
[2021-12-13] MEDS: losartan 50mg tablet PO SCH (21:15)
[2021-12-13] MEDS: metoprolol tartrate 25mg tablet PO SCH (21:15)
[2021-12-14 02:30] VITALS: BP 94/54
[2021-12-14] MEDS: ipratropium/albuterol 3ml nebule NEB SCH ×4 (02:52→20:03)
[2021-12-14 06:00] VITALS: BP 123/81
--- NOTE | 2021-12-14 06:25 | NUR ---
Problems reprioritized. Patient report given, questions answered & plan of care reviewed with Shiela READ.
--- NOTE | 2021-12-14 06:44 | NUR ---
Patient in room PCU 3018. I have received report from Andree READ and had the opportunity to ask questions and assume patient care. Patient awake tabs alarm on rails up x3
[2021-12-14 06:57] LABS: MAGNESIUM 1.3 MG/DL (1.5-2.4); POTASSIUM 3.8 MMOL/L (3.5-5.1)
[2021-12-14] MEDS: normal saline 1000ml 1,000 ML IV SCH (07:15)
[2021-12-14] MEDS: furosemide 20 MG/2 ML vial IV SCH (07:51)
[2021-12-14] MEDS: duloxetine 20mg capsule.DR PO SCH ×2 (07:51→20:38)
[2021-12-14] MEDS: predniSONE 5mg tablet PO SCH (07:51)
[2021-12-14] MEDS: gabapentin 300mg capsule PO SCH ×2 (07:51→20:38)
[2021-12-14] MEDS: aspirin 81mg, enteric-coated 1 TAB TABLET.DR PO SCH (07:51)
[2021-12-14] MEDS: ezetimibe 10mg tablet PO SCH (07:51)
[2021-12-14] MEDS: OMEGA-3/DHA/EPA/FISH OIL 1 EACH CAPSULE.DR PO SCH ×2 (07:52→20:38)
[2021-12-14] MEDS: allopurinol 100mg tablet PO SCH (07:52)
[2021-12-14] MEDS: K and/or MAG REPLACEMENT MC SCH ×2 (08:00→20:00)
[2021-12-14] MEDS: lactose-reduced food (Ensure Enlive) - 237ml bottle PO SCH ×2 (08:06→17:54)
[2021-12-14 08:40] LABS: ANION GAP 5 (8-16); BILIRUBIN,TOTAL 0.3 MG/DL (0.1-1.0); BLOOD UREA NITROGEN 30 MG/DL (7-18); BUN/CREATININE RATIO 20.8 (5.4-32.0); CALCIUM 11.5 MG/DL (8.5-10.1); CHLORIDE 103 MMOL/L (99-107); CREATININE 1.44 MG/DL (0.60-1.10); GLUCOSE 90 MG/DL (70-104); SODIUM 138 MMOL/L (135-145); TOTAL CARBON DIOXIDE 29.7 MMOL/L (24-32); eGFR 47 ML/MIN
[2021-12-14 08:41] LABS: ALANINE AMINOTRANSFERASE 21 U/L (12-78); ALBUMIN 1.9 G/DL (3.4-5.0); ALBUMIN/GLOBULIN RATIO 0.5 (1.1-1.5); ALKALINE PHOSPHATASE 58 IU/L (46-116); ASPARTATE AMINO TRANSFERASE 26 U/L (10-37); TOTAL PROTEIN 6.1 G/DL (6.4-8.2)
--- NOTE | 2021-12-14 10:37 | NUR ---
Reassessment: Patient's PO intake appears to be improving, documented with mostly 50% PO intake though with 100% PO intake at most recent documented meal. Pt now receiving an Ensure Enlive BIDBD and pt with fair acceptance, averaging 50% PO intake of ONS. Overall combined PO intake of meals and ONS is meeting estimated nutrient needs. Per EMR pt with improved mentation, currently A/O x 3. Hopeful that pt will continue eating well given improving mentation. [facility] 12/11. Will continue to follow and monitor need for further nutrition intervention. Recommendations: 1. Liberalize to regular diet 2. Ensure Enlive BIDBD 3. Routine bowel care 4. Weekly scaled wts Addendum: 12/14/21 at [address] Amended: Links added.
[2021-12-14 11:00] VITALS: BP 100/38
[2021-12-14] MEDS: magnesium Cl slow-release 64mg tablet PO PRN (13:33)
[2021-12-14 15:00] VITALS: BP 101/43
[2021-12-14 18:00] VITALS: BP 109/69
--- NOTE | 2021-12-14 18:32 | NUR ---
Patient in room PCU 3018B. I have received report from Shiela READ and had the opportunity to ask questions and assume patient care.
--- NOTE | 2021-12-14 18:48 | NUR ---
Problems reprioritized. Patient report given, questions answered & plan of care reviewed with Andree READ.
[2021-12-14 19:56] LABS: A/G RATIO 0.8 (0.7-1.7); ALBUMIN 2.2 g/dL (2.9-4.4); BETA GLOBULIN 0.7 g/dL (0.7-1.3); GAMMA GLOBULIN 0.9 g/dL (0.4-1.8); GLOBULIN, TOTAL 2.8 g/dL (2.2-3.9); M-SPIKE 0.6 g/dL (Not Observed)
[2021-12-14] MEDS: multivitamins, therapeutics tablet PO SCH (20:39)
[2021-12-14] MEDS: metoprolol tartrate 25mg tablet PO SCH (20:39)
[2021-12-14] MEDS: losartan 50mg tablet PO SCH (20:39)
[2021-12-14 22:00] VITALS: BP 119/49
[2021-12-15 02:00] VITALS: BP 121/54
[2021-12-15] MEDS: ipratropium/albuterol 3ml nebule NEB SCH ×5 (02:42→20:17)
[2021-12-15] MEDS: normal saline 1000ml 1,000 ML IV SCH ×2 (04:14→16:50)
[2021-12-15 06:00] VITALS: BP 109/87
--- NOTE | 2021-12-15 06:30 | NUR ---
Problems reprioritized. Patient report given, questions answered & plan of care reviewed with Shiela READ.
--- NOTE | 2021-12-15 06:30 | NUR ---
Patient in room PCU 3018. I have received report from Andree READ and had the opportunity to ask questions and assume patient care.
[2021-12-15 07:39] LABS: ALANINE AMINOTRANSFERASE 27 U/L (12-78); ALBUMIN 2.1 G/DL (3.4-5.0); ALBUMIN/GLOBULIN RATIO 0.5 (1.1-1.5); ALKALINE PHOSPHATASE 59 IU/L (46-116); ANION GAP 6 (8-16); ASPARTATE AMINO TRANSFERASE 29 U/L (10-37); BILIRUBIN,TOTAL 0.3 MG/DL (0.1-1.0); BLOOD UREA NITROGEN 31 MG/DL (7-18); BUN/CREATININE RATIO 21.4 (5.4-32.0); CALCIUM 11.9 MG/DL (8.5-10.1); CHLORIDE 102 MMOL/L (99-107); CREATININE 1.45 MG/DL (0.60-1.10); GLUCOSE 91 MG/DL (70-104); MAGNESIUM 1.3 MG/DL (1.5-2.4); POTASSIUM 3.7 MMOL/L (3.5-5.1); SODIUM 138 MMOL/L (135-145); TOTAL PROTEIN 6.2 G/DL (6.4-8.2); eGFR 47 ML/MIN
[2021-12-15] MEDS: K and/or MAG REPLACEMENT MC SCH ×2 (08:00→20:00)
[2021-12-15] MEDS: allopurinol 100mg tablet PO SCH (08:03)
[2021-12-15] MEDS: duloxetine 20mg capsule.DR PO SCH ×2 (08:03→20:45)
[2021-12-15] MEDS: OMEGA-3/DHA/EPA/FISH OIL 1 EACH CAPSULE.DR PO SCH ×2 (08:03→20:45)
[2021-12-15] MEDS: gabapentin 300mg capsule PO SCH ×2 (08:03→20:45)
[2021-12-15] MEDS: furosemide 20 MG/2 ML vial IV SCH (08:03)
[2021-12-15] MEDS: predniSONE 5mg tablet PO SCH (08:03)
[2021-12-15] MEDS: aspirin 81mg, enteric-coated 1 TAB TABLET.DR PO SCH (08:03)
[2021-12-15] MEDS: ezetimibe 10mg tablet PO SCH (08:03)
[2021-12-15] MEDS: lactose-reduced food (Ensure Enlive) - 237ml bottle PO SCH ×2 (08:08→17:43)
--- NOTE | 2021-12-15 10:58 | NUR ---
Per verbal d/w RN patient's SO is concerned about pt receiving Ensure as pt with hypercalcemia. D/w RN that pt is receiving Ensure BID d/t insufficient PO intake of meals, though it appears pt is eating better and Ensure may be reduced to once daily versus discontinued if pt continues eating well. Per RN patient's PO intake/appetite does fluctuate per patient's food preferences. Addendum: 12/15/21 at [address] Amended: Links added.
[2021-12-15 11:00] VITALS: BP 114/45
[2021-12-15] MEDS ORDERED: magnesium 2GM in 50ml NS 50 ML IV PRN (14:40)
[2021-12-15 15:00] VITALS: BP 92/40
[2021-12-15 18:00] VITALS: BP 117/46
--- NOTE | 2021-12-15 18:39 | NUR ---
Problems reprioritized. Patient report given, questions answered & plan of care reviewed with Yuliana CHAMPION.
--- NOTE | 2021-12-15 18:39 | NUR ---
Patient in room PCU 3018. I have received report from margarito herman and had the opportunity to ask questions and assume patient care.
[2021-12-15] MEDS: losartan 50mg tablet PO SCH (20:53)
[2021-12-15] MEDS: metoprolol tartrate 25mg tablet PO SCH (20:56)
[2021-12-15] MEDS: multivitamins, therapeutics tablet PO SCH (20:59)
[2021-12-15 22:00] VITALS: BP 126/51
[2021-12-16 02:00] VITALS: BP 118/47
[2021-12-16] MEDS: ipratropium/albuterol 3ml nebule NEB SCH ×4 (03:00→20:06)
[2021-12-16 06:00] VITALS: BP 105/44
--- NOTE | 2021-12-16 06:02 | NUR ---
AGREE WITH NUT SIFTER PHYSICAL ASSESSMENT CHARTED
--- NOTE | 2021-12-16 06:36 | NUR ---
Problems reprioritized. Patient report given, questions answered & plan of care reviewed with sandro READ.
[2021-12-16 07:01] LABS: BASOPHILS % (AUTO) 0.5 % (0-1); EOSINOPHILS # (AUTO) 0.7 X10'3 (0-0.9); EOSINOPHILS % (AUTO) 7.3 % (0-6); HEMATOCRIT 26.8 % (42.0-52.0); HEMOGLOBIN 8.9 g/dl (14.0-17.9); LYMPHOCYTES # (AUTO) 1.3 X10'3 (1.1-4.8); LYMPHOCYTES % (AUTO) 14.2 % (21-51); MEAN CORPUSCULAR HEMOGLOBIN 33.5 PG (27.0-31.0); MEAN CORPUSCULAR HGB CONC 33.3 g/dL (33.0-36.5); MEAN CORPUSCULAR VOLUME 100.7 FL (78-98); MEAN PLATELET VOLUME 7.2 FL (7.4-10.4); MONOCYTES # (AUTO) 0.3 X10'3 (0-0.9); MONOCYTES % (AUTO) 3.7 % (2-12); NEUTROPHILS # (AUTO) 6.7 X10'3 (1.8-7.7); NEUTROPHILS % (AUTO) 74.3 % (42-75); PLATELET COUNT 427 X10'3 (140-440); RED BLOOD COUNT 2.67 X10'6 (4.70-6.10); RED CELL DISTRIBUTION WIDTH 16.4 % (11.5-14.5)
[2021-12-16 07:23] LABS: ALANINE AMINOTRANSFERASE 26 U/L (12-78); ALBUMIN 2.2 G/DL (3.4-5.0); ALBUMIN/GLOBULIN RATIO 0.5 (1.1-1.5); ALKALINE PHOSPHATASE 64 IU/L (46-116); ANION GAP 5 (8-16); ASPARTATE AMINO TRANSFERASE 25 U/L (10-37); BILIRUBIN,TOTAL 0.3 MG/DL (0.1-1.0); BLOOD UREA NITROGEN 31 MG/DL (7-18); BUN/CREATININE RATIO 19.9 (5.4-32.0); CALCIUM 11.2 MG/DL (8.5-10.1); CHLORIDE 103 MMOL/L (99-107); CREATININE 1.56 MG/DL (0.60-1.10); GLUCOSE 100 MG/DL (70-104); MAGNESIUM 3.2 MG/DL (1.5-2.4); POTASSIUM 3.9 MMOL/L (3.5-5.1); SODIUM 139 MMOL/L (135-145); TOTAL CARBON DIOXIDE 30.6 MMOL/L (24-32); TOTAL PROTEIN 6.4 G/DL (6.4-8.2); eGFR 43 ML/MIN
[2021-12-16] MEDS: lactose-reduced food (Ensure Enlive) - 237ml bottle PO SCH ×2 (07:30→17:42)
[2021-12-16] MEDS: K and/or MAG REPLACEMENT MC SCH ×2 (08:00→20:00)
[2021-12-16] MEDS: gabapentin 300mg capsule PO SCH ×2 (08:26→22:27)
[2021-12-16] MEDS: aspirin 81mg, enteric-coated 1 TAB TABLET.DR PO SCH (08:26)
[2021-12-16] MEDS: duloxetine 20mg capsule.DR PO SCH ×2 (08:26→22:21)
[2021-12-16] MEDS: OMEGA-3/DHA/EPA/FISH OIL 1 EACH CAPSULE.DR PO SCH ×2 (08:26→22:21)
[2021-12-16] MEDS: predniSONE 5mg tablet PO SCH (08:26)
[2021-12-16] MEDS: allopurinol 100mg tablet PO SCH (08:26)
[2021-12-16] MEDS: HYDROcodone/acetaminophen 5mg/325mg tablet PO PRN (08:27)
[2021-12-16] MEDS: ezetimibe 10mg tablet PO SCH (08:27)
[2021-12-16] MEDS: furosemide 20 MG/2 ML vial IV SCH (08:27)
[2021-12-16 11:00] VITALS: BP 114/47
[2021-12-16 17:44] VITALS: BP 107/49
[2021-12-16 18:00] VITALS: BP 118/50
--- NOTE | 2021-12-16 18:36 | NUR ---
Gave report to Jami READ.
[2021-12-16] MEDS: normal saline 1000ml 1,000 ML IV SCH (19:15)
[2021-12-16] MEDS: losartan 50mg tablet PO SCH (21:00)
[2021-12-16 22:00] VITALS: BP 110/53
[2021-12-16] MEDS: multivitamins, therapeutics tablet PO SCH (22:21)
[2021-12-16] MEDS: metoprolol tartrate 25mg tablet PO SCH (22:21)
[2021-12-17 02:00] VITALS: BP 101/57
[2021-12-17] MEDS: ipratropium/albuterol 3ml nebule NEB SCH ×3 (03:00→16:00)
[2021-12-17 06:00] VITALS: BP 107/49
--- NOTE | 2021-12-17 06:32 | NUR ---
Problems reprioritized. Patient report given, questions answered & plan of care reviewed with RORO Coleman.
[2021-12-17 06:55] LABS: POTASSIUM 4.3 MMOL/L (3.5-5.1)
[2021-12-17] MEDS: lactose-reduced food (Ensure Enlive) - 237ml bottle PO SCH ×2 (07:30→17:30)
[2021-12-17] MEDS: duloxetine 20mg capsule.DR PO SCH (07:59)
[2021-12-17] MEDS: aspirin 81mg, enteric-coated 1 TAB TABLET.DR PO SCH (07:59)
[2021-12-17] MEDS: gabapentin 300mg capsule PO SCH (07:59)
[2021-12-17] MEDS: ezetimibe 10mg tablet PO SCH (07:59)
[2021-12-17] MEDS: OMEGA-3/DHA/EPA/FISH OIL 1 EACH CAPSULE.DR PO SCH (07:59)
[2021-12-17] MEDS: furosemide 20 MG/2 ML vial IV SCH (08:00)
[2021-12-17] MEDS: K and/or MAG REPLACEMENT MC SCH (08:00)
[2021-12-17] MEDS: allopurinol 100mg tablet PO SCH (08:00)
[2021-12-17] MEDS: predniSONE 5mg tablet PO SCH (08:00)
[2021-12-17 11:00] VITALS: BP 107/49
--- NOTE | 2021-12-17 11:24 | NUR ---
Nutrition consult regarding family concern of Ensure and hypercalcemia: Spoke w/ pt at bedside who states that his is not here today. Discussed w/ pt that dietary intake of calcium will not have a significant impact on blood levels of calcium and that Ensures are okay to drink, especially if his meal intake is low. RD contact info left w/ pt. Addendum: 12/17/21 at [address] Amended: Links added.
[2021-12-17] MEDS: normal saline 1000ml 1,000 ML IV SCH (11:38)
[2021-12-17 15:00] VITALS: BP 106/45
--- NOTE | 2021-12-17 18:20 | NUR ---
Report called to Yuliana at [facility], waiting on transport chicken picker that was scheduled for 1800.
== END 2021-12-17 18:45 | DRG 291 ==
LOC: ER 11:39 → ED HOLD 13:53 → PCU 3S 12-07 20:00
PROVIDERS: ADMIT Internal Medicine; ATTEND Internal Medicine
PROC: 0T9B70Z Drainage of Bladder with Drainage Device, Via Natural or Artificial Opening (ICD-10-PCS; 2021-12-07)
PROC: 0T2BX0Z Change Drainage Device in Bladder, External Approach (ICD-10-PCS; 2021-12-08)
PROC: BW251ZZ Computerized Tomography (CT Scan) of Chest, Abdomen and Pelvis using Low Osmolar Contrast (ICD-10-PCS; principal; 2021-12-10)
DX: I11.0 Hypertensive heart disease with heart failure (principal); G93.41 Metabolic encephalopathy; I50.23 Acute on chronic systolic (congestive) heart failure; N17.9 Acute kidney failure, unspecified; J96.11 Chronic respiratory failure with hypoxia; R33.9 Retention of urine, unspecified; J44.9 Chronic obstructive pulmonary disease, unspecified; M10.9 Gout, unspecified; E78.5 Hyperlipidemia, unspecified; N13.9 Obstructive and reflux uropathy, unspecified; Z20.822 Contact with and (suspected) exposure to COVID-19; E83.52 Hypercalcemia; D64.9 Anemia, unspecified; F32.A Depression, unspecified; E11.9 Type 2 diabetes mellitus without complications; I25.2 Old myocardial infarction; Z87.442 Personal history of urinary calculi; Z87.891 Personal history of nicotine dependence; Z79.84 Long term (current) use of oral hypoglycemic drugs; Z88.8 Allergy status to other drugs, medicaments and biological substances; Z79.899 Other long term (current) drug therapy; E87.6 Hypokalemia; E83.42 Hypomagnesemia
CPT/HCPCS: 36415; 71045; 71260; 74177; 77075; 80048; 80053; 81003; 82330; 83735; 83880; 83970; 84132; 84153; 84154; 84155; 84165; 84443; 84484; 85025; 87081; 87811; 93005; 93308; 94640; 94760; 97110; 97116; 97162; 97530; 99285; A4314; A4615; A4620; A5200; G0378; J1940; J2270; J2430; J3475; J7030; J7040; J7512; Q9963; Q9967

== ENCOUNTER 2022-05-01 11:14 | Observation (INO) | payer MEDICARE, OTHER ==
[~2022-05-01] VITALS: Ht 160 cm; Wt 55.5 kg
[2022-05-01] VITALS (9 sets, daily range): BP systolic 93–110; BP diastolic 51–65
[~2022-05-01 11:14] MED LIST changes: -CLOP75TA33 PO; +EMPA10TA PO; +FURO20TA4 PO; -GABA-530 PO; +GABA300C PO; +HYDR-3964 PO
[2022-05-01 12:36] LABS: BASOPHILS % (AUTO) 0.2 % (0-1); EOSINOPHILS # (AUTO) 0.1 X10'3 (0-0.9); EOSINOPHILS % (AUTO) 0.9 % (0-6); LYMPHOCYTES % (AUTO) 16.4 % (21-51); MEAN CORPUSCULAR HEMOGLOBIN 33.6 PG (27.0-31.0); MEAN CORPUSCULAR HGB CONC 32.8 g/dL (33.0-36.5); MEAN CORPUSCULAR VOLUME 102.5 FL (78-98); MEAN PLATELET VOLUME 7.1 FL (7.4-10.4); MONOCYTES # (AUTO) 0.2 X10'3 (0-0.9); MONOCYTES % (AUTO) 2.5 % (2-12); PLATELET COUNT 209 X10'3 (140-440); RED BLOOD COUNT 1.87 X10'6 (4.70-6.10); RED CELL DISTRIBUTION WIDTH 21.1 % (11.5-14.5); WHITE BLOOD COUNT 6.2 X10'3 (4.5-11.0)
--- NOTE | 2022-05-01 12:45 | NUR ---
Charge nurse made aware of pt's hgb and hct values.
[2022-05-01 12:46] LABS: HEMOGLOBIN 6.3 g/dl (14.0-17.9)
[2022-05-01 12:47] LABS: HEMATOCRIT 19.1 % (42.0-52.0)
[2022-05-01 12:51] LABS: ALANINE AMINOTRANSFERASE 13 U/L (12-78); ALBUMIN 2.9 G/DL (3.4-5.0); ALBUMIN/GLOBULIN RATIO 0.7 (1.1-1.5); ALKALINE PHOSPHATASE 50 IU/L (46-116); ANION GAP 13 (8-16); ASPARTATE AMINO TRANSFERASE 15 U/L (10-37); BILIRUBIN,TOTAL 0.4 MG/DL (0.1-1.0); BLOOD UREA NITROGEN 68 MG/DL (7-18); BUN/CREATININE RATIO 28.6 (5.4-32.0); CALCIUM 9.2 MG/DL (8.5-10.1); CHLORIDE 103 MMOL/L (99-107); CREATININE 2.38 MG/DL (0.60-1.10); GLUCOSE 123 MG/DL (70-104); POTASSIUM 4.4 MMOL/L (3.5-5.1); SODIUM 139 MMOL/L (135-145); TOTAL CARBON DIOXIDE 22.8 MMOL/L (24-32); TOTAL PROTEIN 6.9 G/DL (6.4-8.2); eGFR 26 ML/MIN
[2022-05-01 14:36] LABS: ANISOCYTOSIS 3+; PLATELET ESTIMATE NORMAL
[2022-05-01 14:37] LABS: ELLIPTOCYTES 1+; SCHISTOCYTES FEW
[2022-05-01] MEDS ORDERED: GABA300C PO (15:48)
[2022-05-01] MEDS ORDERED: METO50TA16 PO (15:48)
[2022-05-01] MEDS ORDERED: PRE5T PO (15:48)
[2022-05-01] MEDS ORDERED: VALS80TA32 PO (15:48)
[2022-05-01] MEDS ORDERED: METF-1203 PO (15:48)
[2022-05-01] MEDS ORDERED: VITA-268 PO (15:49)
[2022-05-01] MEDS ORDERED: FLO0.4C PO (15:49)
[2022-05-01] MEDS ORDERED: metoprolol tartrate 50mg tablet PO PRN (16:40)
[2022-05-01] MEDS ORDERED: magnesium 4gm in 100ml NS 100 ML IV PRN (16:50)
[2022-05-01] MEDS ORDERED: mag hydrox/Alum hydrox/simeth 30ml oral suspension PO PRN (16:50)
[2022-05-01] MEDS ORDERED: potassium Cl 40MEQ/1/2NS 520ml 520 ML IV PRN (16:50)
[2022-05-01] MEDS ORDERED: magnesium Cl slow-release 64mg tablet PO PRN (16:50)
[2022-05-01] MEDS ORDERED: insulin Lispro (HumaLOG) vial - multi-dose SQ SCH (16:50)
[2022-05-01] MEDS ORDERED: morphine 2 MG/ML inj. syringe IV PRN ×2 (16:50)
[2022-05-01] MEDS ORDERED: HYDROcodone/acetaminophen 10/325mg tab PO PRN (16:50)
[2022-05-01] MEDS ORDERED: DEXTROSE 15 GM of carb/4 tabs (each vial/BOTTLE has 4 tablets) PO PRN ×2 (16:50)
[2022-05-01] MEDS ORDERED: acetaminophen 325mg tablet PO PRN ×2 (16:50)
[2022-05-01] MEDS ORDERED: diphenhydrAMINE 25mg capsule PO PRN (16:50)
[2022-05-01] MEDS ORDERED: potassium Cl 20 mEq SR tablet PO PRN ×2 (16:50)
[2022-05-01] MEDS ORDERED: bisacodyl 10mg suppository rectal RC PRN (16:50)
[2022-05-01] MEDS ORDERED: dextrose 50%-water 50ml dispensing syringe IV PRN ×2 (16:50)
[2022-05-01] MEDS ORDERED: glucagon, human recombinant 1mg kit SUBCUT PRN (16:50)
[2022-05-01] MEDS ORDERED: magnesium hydroxide 30ml (MOM) UD suspension PO PRN (16:50)
[2022-05-01] MEDS ORDERED: acetaminophen 650mg rectal suppository RC PRN (16:50)
[2022-05-01] MEDS ORDERED: MESSAGE TO PHARMACY PO ONE (16:50)
[2022-05-01] MEDS ORDERED: ondansetron/PF 4mg/2ml inj IV PRN (16:50)
[2022-05-01] MEDS ORDERED: HYDROcodone/acetaminophen 5mg/325mg tablet PO PRN (16:50)
[2022-05-01 17:54] LABS: HEMOGLOBIN A1C 6.7 % (4.5-6.2)
[2022-05-01 19:57] LABS: BASOPHILS % (AUTO) 0.2 % (0-1); EOSINOPHILS % (AUTO) 0.8 % (0-6); HEMATOCRIT 26.8 % (42.0-52.0); HEMOGLOBIN 9.2 g/dl (14.0-17.9); LYMPHOCYTES # (AUTO) 1.2 X10'3 (1.1-4.8); LYMPHOCYTES % (AUTO) 24.5 % (21-51); MEAN CORPUSCULAR HEMOGLOBIN 33.1 PG (27.0-31.0); MEAN CORPUSCULAR HGB CONC 34.2 g/dL (33.0-36.5); MEAN CORPUSCULAR VOLUME 96.6 FL (78-98); MEAN PLATELET VOLUME 7.2 FL (7.4-10.4); MONOCYTES # (AUTO) 0.1 X10'3 (0-0.9); MONOCYTES % (AUTO) 1.7 % (2-12); NEUTROPHILS # (AUTO) 3.6 X10'3 (1.8-7.7); NEUTROPHILS % (AUTO) 72.8 % (42-75); PLATELET COUNT 189 X10'3 (140-440); RED BLOOD COUNT 2.78 X10'6 (4.70-6.10); RED CELL DISTRIBUTION WIDTH 19.2 % (11.5-14.5); WHITE BLOOD COUNT 4.9 X10'3 (4.5-11.0)
[2022-05-01] MEDS: K and/or MAG REPLACEMENT MC SCH (20:00)
[2022-05-01 20:51] LABS: ANISOCYTOSIS 2+; PLATELET ESTIMATE NORMAL
[2022-05-01 20:57] LABS: BURR CELLS FEW; ELLIPTOCYTES FEW; SCHISTOCYTES FEW
[2022-05-01] MEDS ORDERED: insulin glargine (Lantus) pen - multi-dose SQ SCH (21:00)
[2022-05-01] MEDS ORDERED: losartan 50mg tablet PO SCH (21:00)
--- NOTE | 2022-05-01 21:30 | NUR ---
Patient in room PCU 3020. I have received report from Martha ED RN and had the opportunity to ask questions and assume patient care.
[2022-05-01] MEDS: docusate sod 100mg capsule PO SCH (21:51)
[2022-05-01] MEDS: gabapentin 300mg capsule PO SCH (21:51)
--- NOTE | 2022-05-01 22:00 | NUR ---
PT ARRIVED ON THE UNIT, TRANSFERRED TO THE BED, VITALS STABLE, PT IS RESTING COMFORTABLY
[2022-05-02] MEDS: OMEGA-3/DHA/EPA/FISH OIL 1 EACH CAPSULE.DR PO SCH ×2 (00:16→09:00)
[2022-05-02] MEDS: duloxetine 20mg capsule.DR PO SCH ×2 (00:17→08:17)
[2022-05-02 02:00] VITALS: BP 115/65
[2022-05-02 06:00] VITALS: BP 115/64
[2022-05-02 06:29] LABS: BASOPHILS % (AUTO) 0.3 % (0-1); EOSINOPHILS # (AUTO) 0.1 X10'3 (0-0.9); EOSINOPHILS % (AUTO) 2.4 % (0-6); HEMATOCRIT 25.1 % (42.0-52.0); HEMOGLOBIN 8.5 g/dl (14.0-17.9); LYMPHOCYTES % (AUTO) 38.6 % (21-51); MEAN PLATELET VOLUME 7.3 FL (7.4-10.4); MONOCYTES # (AUTO) 0.2 X10'3 (0-0.9); MONOCYTES % (AUTO) 3.9 % (2-12); NEUTROPHILS # (AUTO) 2.8 X10'3 (1.8-7.7); NEUTROPHILS % (AUTO) 54.8 % (42-75); PLATELET COUNT 181 X10'3 (140-440); RED BLOOD COUNT 2.58 X10'6 (4.70-6.10); RED CELL DISTRIBUTION WIDTH 20.3 % (11.5-14.5); WHITE BLOOD COUNT 5.2 X10'3 (4.5-11.0)
[2022-05-02 06:49] LABS: ALANINE AMINOTRANSFERASE 14 U/L (12-78); ALBUMIN 2.7 G/DL (3.4-5.0); ALBUMIN/GLOBULIN RATIO 0.7 (1.1-1.5); ALKALINE PHOSPHATASE 53 IU/L (46-116); ANION GAP 8 (8-16); ASPARTATE AMINO TRANSFERASE 14 U/L (10-37); BILIRUBIN,TOTAL 0.9 MG/DL (0.1-1.0); BLOOD UREA NITROGEN 59 MG/DL (7-18); BUN/CREATININE RATIO 27.1 (5.4-32.0); CALCIUM 8.9 MG/DL (8.5-10.1); CHLORIDE 104 MMOL/L (99-107); CREATININE 2.18 MG/DL (0.60-1.10); GLUCOSE 101 MG/DL (70-104); MAGNESIUM 1.8 MG/DL (1.5-2.4); PHOSPHORUS 3.5 MG/DL (2.3-4.5); POTASSIUM 4.1 MMOL/L (3.5-5.1); SODIUM 135 MMOL/L (135-145); TOTAL CARBON DIOXIDE 22.8 MMOL/L (24-32); TOTAL PROTEIN 6.6 G/DL (6.4-8.2); eGFR 29 ML/MIN
--- NOTE | 2022-05-02 07:02 | NUR ---
Problems reprioritized. Patient report given, questions answered & plan of care reviewed with Crystal READ.
[2022-05-02] MEDS ORDERED: cholecalciferol (vitamin D3) 1,000 unit (25mcg) tablet PO SCH (08:00)
[2022-05-02] MEDS: K and/or MAG REPLACEMENT MC SCH (08:00)
[2022-05-02] MEDS ORDERED: allopurinol 300 MG tablet PO SCH (08:00)
[2022-05-02] MEDS ORDERED: multivitamins, therapeutics tablet PO SCH (08:00)
[2022-05-02] MEDS ORDERED: vitamin B comp w/Vit. C tab 1 TAB TABLET PO SCH (08:00)
[2022-05-02] MEDS ORDERED: tamsulosin 0.4mg capsule PO SCH (08:00)
[2022-05-02] MEDS ORDERED: furosemide 20MG tablet PO SCH (08:00)
[2022-05-02] MEDS ORDERED: predniSONE 5mg tablet PO SCH (08:00)
[2022-05-02] MEDS ORDERED: ezetimibe 10mg tablet PO SCH (08:00)
[2022-05-02] MEDS: gabapentin 300mg capsule PO SCH (08:17)
[2022-05-02] MEDS: docusate sod 100mg capsule PO SCH (08:17)
[2022-05-02 10:59] VITALS: BP 85/57
[2022-05-02 15:19] VITALS: BP 107/67
== END 2022-05-02 16:30 | disposition home or self-care (01) ==
LOC: ER 11:14 → ED HOLD 17:04 → PCU 3S 22:00
PROVIDERS: ADMIT Family Medicine; ATTEND Family Medicine
DX: I13.0 Hypertensive heart and chronic kidney disease with heart failure and stage 1 through stage 4 chronic kidney disease, or unspecified chronic kidney disease (principal); E11.22 Type 2 diabetes mellitus with diabetic chronic kidney disease; I50.9 Heart failure, unspecified; N18.9 Chronic kidney disease, unspecified; D63.1 Anemia in chronic kidney disease; N17.9 Acute kidney failure, unspecified; M10.9 Gout, unspecified; E78.5 Hyperlipidemia, unspecified; N40.0 Benign prostatic hyperplasia without lower urinary tract symptoms; I25.10 Atherosclerotic heart disease of native coronary artery without angina pectoris; D47.2 Monoclonal gammopathy; G62.9 Polyneuropathy, unspecified; G89.4 Chronic pain syndrome; J44.9 Chronic obstructive pulmonary disease, unspecified; I25.2 Old myocardial infarction; F41.8 Other specified anxiety disorders; Z79.899 Other long term (current) drug therapy; Z79.84 Long term (current) use of oral hypoglycemic drugs; Z87.442 Personal history of urinary calculi; Z87.891 Personal history of nicotine dependence; Z95.0 Presence of cardiac pacemaker; Z96.641 Presence of right artificial hip joint; Z99.3 Dependence on wheelchair
CPT/HCPCS: 36415; 36430; 71045; 80053; 82948; 83036; 83735; 84100; 85008; 85025; 86885; 86900; 86901; 86920; 97161; 97530; 99285; G0378; J7040; J7512; P9016; J1815